=== PATIENT | male | born 1960 | race Caucasian/White ===

== ENCOUNTER 2016-07-14 15:27 | Observation (INO) | payer OTHER ==
--- NOTE | 2016-07-14 16:26 | ED ---
Extremity Problem HPI - General Chief complaint: Extremity Problem,Nontraumatic Stated complaint: Foot Pain Time Seen by Provider: 07/14/16 16:02 Source: patient Mode of arrival: wheelchair Limitations: no limitations - History of Present Illness Initial comments: 56-year-old male presents the ER with bilateral foot and ankle pain. He states that back in March his right ankle and foot started bothering him and at that time he saw a foot and ankle specialist in progression. He states that he was on some type of medication that is unknown but it did help improve the symptoms. It then flared 2 more times than he was given a joint injection that he thinks may have been steroids. He also states that he thinks he was on some oral steroids at that time as well which was about 3 weeks ago. He states that it did improve slightly but still having moderate pain in the right foot and ankle. He states that within the last week the pain swelling and issues have now started in the left foot and ankle. He states that he is unable to walk on his feet due to pain. He also states that he's been having some urinary issues including dark color in order to the urine. He also states that his anxiety has increased and is having some shortness of breath. He denies any nausea, vomiting, diarrhea, headache, blurry vision, abdominal pain, loss of sensation in the extremities, upper respiratory symptoms. He's been taking Aleve try and help with the pain however this is not helping much. - Related Data Home Medications Medication Instructions Recorded Confirmed Sleep Aid Otc(Unknown) 1 tab PO HS 07/14/16 07/14/16 Allergies Allergy/AdvReac Type Severity Reaction Status Date / Time Latex, Natural Rubber Allergy Rash/Hives Verified 07/14/16 16:08 Review of Systems ROS Statement: Those systems with pertinent positive or pertinent negative responses have been documented in the HPI. ROS Other: All systems not noted in ROS Statement are negative. Past Medical History Past Medical History: No Reported History Additional Past Medical History / Comment(s): hx. kidney stones History of Any Multi-Drug Resistant Organisms: None Reported Past Surgical History: Bowel Resection, Orthopedic Surgery Additional Past Surgical History / Comment(s): tracheotomy as a child, ORIF left leg Past Anesthesia/Blood Transfusion Reactions: No Reported Reaction Past Psychological History: No Psychological Hx Reported Smoking Status: Former smoker Past Alcohol Use History: Daily Additional Past Alcohol Use History / Comment(s): 3-4 daily Past Drug Use History: None Reported General Exam Limitations: no limitations General appearance: alert, in distress Head exam: Present: atraumatic, normocephalic Eye exam: Present: normal appearance, PERRL, EOMI Pupils: Present: normal accommodation Neck exam: Present: normal inspection Respiratory exam: Present: normal lung sounds bilaterally Cardiovascular Exam: Present: regular rate, normal rhythm Extremities exam: Present: other (Bilateral lower extremities: Non pitting chente from the foot to knee, mild erythema. Diffuse xerosis. Decreased range of motion of flexion and extension of bilateral ankle secondary to edema. Dorsalis pedis pulse intact on the left however unable to palpate on the right due to swelling. Tibialis anterior on appreciable bilaterally due to edema. Capillary refill less than 2 seconds bilaterally. Tender to touch bilateral foot ankle and lower leg.) Neurological exam: Present: alert, oriented X3, CN II-XII intact Psychiatric exam: Present: normal affect, normal mood Skin exam: Present: other (Bilateral lower legs: Scaling and xerosis bilateral anterior shins and plantar surfaces.) Course Vital Signs 07/14/16 15:57 Temperature 102.4 F H Pulse Rate 96 Respiratory 18 Rate Blood Pressure 143/95 O2 Sat by Pulse 97 Oximetry Medical Decision Making - Medical Decision Making 56-year-old male presented to the ER complaining of bilateral foot and ankle pain that has been worsening. His right foot began in March and is also began a week ago. He states that he has been evaluated by [facility] and has had previous steroid injection and oral steroid treatment to help with the right foot. The left foot has not had any treatment for this time. States that he is unable to walk due to pain. He states that he does have a family history of rheumatoid arthritis and may have been diagnosed with gout in the past however he is a poor historian on medication names treatments and previous diagnoses. Patient was evaluated and basher however it does seem that he needs a more full workup of due to being febrile at 102.4. He denied any other constitutional symptoms upon initial evaluation however he did not the nurse no that he was having dark colored and follow order urine. Labs and urinalysis were ordered. Based on symptomology and having a fever and was discussed with Dr. Hernandez in the probable best mode of action will be admission for further evaluation and workup. Due to increased anxiety and shortness of breath an EKG was ordered to evaluate cardiac causes shortness of breath. EKG did show some PVCs however no evidence of any acute ischemia or blocks. Will recommend IV antibiotics to treat for unknown source of infection however this could possibly be a septic joint. Patient was also given an oral [place] in the ER to help control his pain symptoms. - Lab Data Result diagrams: 07/14/16 16:50 07/14/16 16:50 Lab Results 07/14/16 07/14/16 07/14/16 Range/Units 16:50 16:50 16:50 WBC 9.3 (3.8-10.6) k/uL RBC 5.80 (4.30-5.90) m/uL Hgb 16.5 (13.0-17.5) gm/dL Hct 51.0 (39.0-53.0) % MCV 88.0 (80.0-100.0) fL MCH 28.5 (25.0-35.0) pg MCHC 32.4 (31.0-37.0) g/dL RDW 13.1 (11.5-15.5) % Plt Count 132 L (150-450) k/uL Neutrophils % 74 % Lymphocytes % 13 % Monocytes % 9 % Eosinophils % 2 % Basophils % 2 % Neutrophils # 6.8 (1.3-7.7) k/uL Lymphocytes # 1.2 (1.0-4.8) k/uL Monocytes # 0.8 (0-1.0) k/uL Eosinophils # 0.2 (0-0.7) k/uL Basophils # 0.2 (0-0.2) k/uL ESR 54 H (0-15) mm/hr Sodium 142 (137-145) mmol/L Potassium 4.5 (3.5-5.1) mmol/L Chloride 101 (98-107) mmol/L Carbon Dioxide 25 (22-30) mmol/L Anion Gap 16 mmol/L BUN 13 (9-20) mg/dL Creatinine 0.70 (0.66-1.25) mg/dL Est GFR (MDRD) Af Amer >60 (>60 ml/min/1.73 sqM) Est GFR (MDRD) Non-Af >60 (>60 ml/min/1.73 sqM) Glucose 140 H (74-99) mg/dL Plasma Lactic Acid Zachery 1.6 (0.7-2.0) mmol/L Uric Acid 6.5 (3.5-8.5) mg/dL Calcium 9.9 (8.4-10.2) mg/dL Total Bilirubin 2.0 H (0.2-1.3) mg/dL AST 24 (17-59) U/L ALT 41 (21-72) U/L Alkaline Phosphatase 66 (38-126) U/L Total Protein 7.2 (6.3-8.2) g/dL Albumin 4.3 (3.5-5.0) g/dL Urine Color Urine Appearance (Clear) Urine pH (5.0-8.0) Ur Specific [place] (1.001-1.035) Urine Protein (Negative) Urine Glucose (UA) (Negative) Urine Ketones (Negative) Urine Blood (Negative) Urine Nitrate (Negative) Urine Bilirubin (Negative) Urine Urobilinogen (<2.0) mg/dL Ur Leukocyte Esterase (Negative) Urine RBC (0-5) /hpf Urine WBC (0-5) /hpf Ur Squamous Epith Cells (0-4) /hpf Amorphous Sediment (None) /hpf Urine Mucus (None) /hpf 07/14/16 Range/Units 18:41 WBC (3.8-10.6) k/uL RBC (4.30-5.90) m/uL Hgb (13.0-17.5) gm/dL Hct (39.0-53.0) % MCV (80.0-100.0) fL MCH (25.0-35.0) pg MCHC (31.0-37.0) g/dL RDW (11.5-15.5) % Plt Count (150-450) k/uL Neutrophils % % Lymphocytes % % Monocytes % % Eosinophils % % Basophils % % Neutrophils # (1.3-7.7) k/uL Lymphocytes # (1.0-4.8) k/uL Monocytes # (0-1.0) k/uL Eosinophils # (0-0.7) k/uL Basophils # (0-0.2) k/uL ESR (0-15) mm/hr Sodium (137-145) mmol/L Potassium (3.5-5.1) mmol/L Chloride (98-107) mmol/L Carbon Dioxide (22-30) mmol/L Anion Gap mmol/L BUN (9-20) mg/dL Creatinine (0.66-1.25) mg/dL Est GFR (MDRD) Af Amer (>60 ml/min/1.73 sqM) Est GFR (MDRD) Non-Af (>60 ml/min/1.73 sqM) Glucose (74-99) mg/dL Plasma Lactic Acid Zachery (0.7-2.0) mmol/L Uric Acid (3.5-8.5) mg/dL Calcium (8.4-10.2) mg/dL Total Bilirubin (0.2-1.3) mg/dL AST (17-59) U/L ALT (21-72) U/L Alkaline Phosphatase (38-126) U/L Total Protein (6.3-8.2) g/dL Albumin (3.5-5.0) g/dL Urine Color Yellow Urine Appearance Cloudy (Clear) Urine pH 5.5 (5.0-8.0) Ur Specific [place] 1.025 (1.001-1.035) Urine Protein 1+ H (Negative) Urine Glucose (UA) Negative (Negative) Urine Ketones Negative (Negative) Urine Blood Negative (Negative) Urine Nitrate Negative (Negative) Urine Bilirubin Negative (Negative) Urine Urobilinogen 2.0 (<2.0) mg/dL Ur Leukocyte Esterase Negative (Negative) Urine RBC 2 (0-5) /hpf Urine WBC 7 H (0-5) /hpf Ur Squamous Epith Cells 1 (0-4) /hpf Amorphous Sediment Occasional H (None) /hpf Urine Mucus Many H (None) /hpf - EKG Data -: EKG Interpreted by In EKG shows normal: sinus rhythm Rate: normal 07/14/16 18:54 PVCs noted Disposition Clinical Impression: Fever, Leg edema, Leg pain, Bad odor of urine, Abnormal urine color, Elevated bilirubin Disposition: ADMITTED IP TO THIS [facility] Condition: Stable Referrals: Ary Sandhu MD [Primary Care Provider] - 1-2 days Decision Date: 07/14/16
[2016-07-14] MEDS ORDERED: HYDROcodone/APAP 5-325MG 1 EACH TAB PO STA (16:44)
[2016-07-14 17:02] LABS: Basophils # (A) 0.2 k/uL (0-0.2); Basophils % (A) 2 %; CH 29.3; CHCM 33.5; Eosinophils # (A) 0.2 k/uL (0-0.7); Eosinophils % (A) 2 %; HGB 16.5 gm/dL (13.0-17.5); Luc # (Auto) 0.15; Luc % (Auto) 2; Lymphocytes # (A) 1.2 k/uL (1.0-4.8); Lymphocytes % (A) 13 %; MCH 28.5 pg (25.0-35.0); MCHC 32.4 g/dL (31.0-37.0); Mean Platelet Volume 8.4; Monocytes # (A) 0.8 k/uL (0-1.0); Monocytes % (A) 9 %; Neutrophils # (A) 6.8 k/uL (1.3-7.7); Neutrophils % (A) 74 %; RDW 13.1 % (11.5-15.5); WBC 9.3 k/uL (3.8-10.6); WBC (Perox) 9.26
[2016-07-14 17:12] LABS: ALT 41 U/L (21-72); AST 24 U/L (17-59); Alkaline Phosphatase 66 U/L (38-126); Anion Gap 16 mmol/L; Blood Urea Nitrogen 13 mg/dL (9-20); Calcium 9.9 mg/dL (8.4-10.2); Carbon Dioxide 25 mmol/L (22-30); Chloride 101 mmol/L (98-107); Glucose 140 mg/dL (74-99); Non-African American GFR(MDRD) >60 (>60 ml/min/1.73 sqM); Potassium 4.5 mmol/L (3.5-5.1); Sodium 142 mmol/L (137-145); Total Protein 7.2 g/dL (6.3-8.2); Uric Acid 6.5 mg/dL (3.5-8.5)
[2016-07-14 18:02] LABS: Erythrocyte Sedimentation Rate 54 mm/hr (0-15)
[2016-07-14 18:58] LABS: Amorphous Sediment,Urine Occasional /hpf; Appearance,Urine Cloudy (Clear); Bilirubin,Urine Negative (Negative); Glucose,Urine (UA) Negative (Negative); Ketones,Urine Negative (Negative); Leukocyte Esterase,Urine Negative (Negative); Mucus,Urine Many /hpf; Nitrite,Urine Negative (Negative); PH, Urine 5.5 (5.0-8.0); Particle Count 19757; Protein,Urine 1+ (Negative); RBC,Urine 2 /hpf (0-5); Specific Gravity,Urine 1.025 (1.001-1.035); Squamous Epithelial Cell,Urine 1 /hpf (0-4); UA Billing (MACRO vs. MICRO) MICRO; WBC,Urine 7 /hpf (0-5)
[2016-07-14] MEDS ORDERED: NALOXONE 0.4 MG/ML 1 ML VIAL IV PRN (19:07)
[2016-07-14] MEDS ORDERED: HYDROcodone/APAP 5-325MG 1 EACH TAB PO PRN (19:07)
[2016-07-14] MEDS: SODIUM CHLORIDE 0.9% 1,000 ML IV SCH (19:25)
[2016-07-14 20:31] VITALS: BMI 36.2
[2016-07-14 20:31] LABS: Rheumatoid Factor, Qnt <9 IU/mL (<12)
[2016-07-14] MEDS: IBUPROFEN 400 MG TAB PO PRN (20:42)
[2016-07-14 22:14] LABS: C Reactive Protein 197.1 mg/L (<10.0)
[2016-07-15] MEDS: MELATONIN 5 MG TABLET PO SCH ×2 (03:38→21:11)
[2016-07-15] MEDS: IBUPROFEN 400 MG TAB PO PRN ×3 (04:47→23:37)
[2016-07-15 06:37] LABS: Glucose,Whole Blood 107 mg/dL (75-99)
[2016-07-15 07:02] LABS: Basophils % (A) 1 %; CHCM 32.5; Eosinophils # (A) 0.1 k/uL (0-0.7); Eosinophils % (A) 2 %; HCT 46.7 % (39.0-53.0); HDW 2.57; HGB 15.1 gm/dL (13.0-17.5); Luc # (Auto) 0.15; Luc % (Auto) 2; Lymphocytes # (A) 0.9 k/uL (1.0-4.8); Lymphocytes % (A) 14 %; MCHC 32.3 g/dL (31.0-37.0); MCV 89.7 fL (80.0-100.0); Mean Platelet Volume 8.2; Monocytes # (A) 0.7 k/uL (0-1.0); Monocytes % (A) 10 %; Neutrophils # (A) 4.5 k/uL (1.3-7.7); Neutrophils % (A) 70 %; RDW 12.8 % (11.5-15.5); WBC 6.3 k/uL (3.8-10.6); WBC (Perox) 6.03
[2016-07-15 07:17] LABS: ALT 45 U/L (21-72); AST 24 U/L (17-59); Alkaline Phosphatase 63 U/L (38-126); Anion Gap 9 mmol/L; Blood Urea Nitrogen 16 mg/dL (9-20); Calcium 9.4 mg/dL (8.4-10.2); Carbon Dioxide 29 mmol/L (22-30); Chloride 103 mmol/L (98-107); Glucose 115 mg/dL (74-99); Non-African American GFR(MDRD) >60 (>60 ml/min/1.73 sqM); Potassium 4.6 mmol/L (3.5-5.1); Sodium 141 mmol/L (137-145); Total Bilirubin 1.5 mg/dL (0.2-1.3); Total Protein 6.5 g/dL (6.3-8.2)
[2016-07-15 12:12] LABS: Glucose,Whole Blood 94 mg/dL (75-99)
[2016-07-15] MEDS ORDERED: IV VANCOMYCIN PER PHARMACY 1 EACH MISC MISCELLANE PRN (13:13)
--- NOTE | 2016-07-15 13:56 | XR ---
EXAMINATION TYPE: XR foot limited bilateral DATE OF EXAM: 07/15/2016 1:52 PM COMPARISON: NONE HISTORY: Bilateral foot pain and swelling TECHNIQUE: 2 views bilateral feet FINDINGS: Right foot: There is deformity of the distal fourth digit is present. Plantar calcaneal heel spur is present. Left foot: Deformity of the distal fourth and fifth digits are present. Plantar calcaneal heel spur is present. IMPRESSION: 1. No acute osseous abnormality. 2. Bilateral plantar calcaneal heel spurs.
[2016-07-15] MEDS: VANCOMYCIN 1,750 MG in SODIUM CHLORIDE 0.9% 250 ML IVPB SCH ×2 (14:23→21:11)
[2016-07-15] MEDS: PREGABALIN 100 MG CAP PO SCH ×2 (14:24→21:11)
[2016-07-15] MEDS: HEPARIN SODIUM,PORCINE 5,000 UNIT/ML 1 ML VIAL SQ SCH ×2 (16:37→23:55)
[2016-07-15 17:19] LABS: Glucose,Whole Blood 105 mg/dL (75-99)
--- NOTE | 2016-07-15 18:40 | HP ---
DATE OF ADMISSION: Patient is a 56-year-old with an extensive history of bilateral ankle pain. He was extensively evaluated in the foot clinic and was told he had what appeared to be osteoarthritis. He came with bilateral foot pain, ankle pain and ambulation problems. When patient came into ER, patient was found to have a fever. Source of fever is unknown at this point of time. Patient denied any flu-like symptoms. Patient denied any chest pain, nausea, vomiting. Patient denied ( ) dysuria, cough. Patient's ( ) chest x-ray all ( ) patient is afebrile since yesterday, although receiving Mize and ibuprofen for pain. I discontinued Mize Blood cultures were obtained in ER. I will go ahead and watch him one more night for any febrile episodes off Mize. Regarding the bilateral foot pain, patient appears to have osteoarthritis. Patient denied any calf pain. I am getting x-rays of the bilateral ankles. Orthopedic Surgery was consulted ( ). Patient has non-impressive mild redness with mild local rise of temperature in the left leg, both the ankle areas, extending about 10 cm circumferentially, because of which, although my suspicion is low for cellulitis, as I did not find any source of infection and patient was febrile yesterday, I went ahead and started him on antibiotics in the form of vancomycin. Patient's Rocephin was discontinued. REVIEW OF SYSTEMS: CONSTITUTIONAL: No fever, no malaise, no fatigue. HEENT: No recent visual problems or hearing problems. Denied any sore throat. CARDIOVASCULAR: No chest pain, orthopnea, PND, no palpitations, no syncope. PULMONARY: No shortness of breath, no cough, no hemoptysis. GASTROINTESTINAL: No diarrhea, no nausea, no vomiting, no abdominal pain. Normoactive bowel sounds. NEUROLOGICAL: No headaches, no weakness, no numbness. HEMATOLOGICAL: Denies any bleeding or petechiae. GENITOURINARY: Denies any burning micturition, frequency, or urgency. MUSCULOSKELETAL/RHEUMATOLOGICAL: As described in HPI. ENDOCRINE: Denies any polyuria or polydipsia. GENERAL: As described in HPI. The rest of the 14 point review of systems is negative. HOME MEDICATIONS: Sleep aid [id number]. ALLERGIES: NO KNOWN DRUG ALLERGIES. PAST MEDICAL HISTORY: 1. Morbid obesity. 2. Alcoholism. 3. Severe osteoarthritis. 4. Bowel resection. 5. Orthopedic surgery in the past. SOCIAL HISTORY: Patient used to smoke in the past; quit about 14 years ago. Drinks about 3 to 4 beers a day. Denied any drug abuse. FAMILY HISTORY: Denied any family history of hypertension or diabetes mellitus in the family. PHYSICAL EXAMINATION: VITAL SIGNS: Temperature 96.7. [id number] T-max is 102.4. Pulse of 96, respiratory rate of 18. Blood pressure is 143/95. Saturating at 97% on room air. GENERAL: The patient is alert and oriented x3, not in any acute distress. Well developed, well nourished. HEENT: Pupils are round and equally reacting to light. EOMI. No scleral icterus. No conjunctival pallor. Normocephalic, atraumatic. No pharyngeal erythema. No thyromegaly. CARDIOVASCULAR: S1 and S2 present. No murmurs, rubs, or gallops. PULMONARY: Chest is clear to auscultation, no wheezing or crackles. ABDOMEN: Soft, nontender, nondistended, normoactive bowel sounds. No palpable organomegaly. MUSCULOSKELETAL: As mentioned above. EXTREMITIES: No cyanosis, clubbing, or pedal edema. Hip pain on and off. NEUROLOGICAL: Gross neurological examination did not reveal any focal deficits. SKIN: Rash as mentioned above. LABORATORY DATA: CBC, CMP essentially within normal limits. Liver function tests are within normal limits. Uric acid level is not diagnostic of anything, but it is within normal limits. UA within normal limits. Chest x-ray as mentioned above. ASSESSMENT AND PLAN: 1. Bilateral ankle pain; unsure of the exact etiology. Patient's ankle does not appear to be septic. Patient may have severe osteoarthritis. I will obtain an x-ray. Will also get orthopedic consultation because of his ambulation issues. Will also obtain PT and OT consultation. 2. Fever; unsure of the exact etiology of fever. I cannot completely rule out cellulitis, as mentioned above, because of which patient was started on vancomycin. 3. Alcoholic abuse. Counseling was provided. 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 Counseling was provided that and patient was asked to take vitamin supplements at home, particularly B vitamin. Patient's MCV is essentially within normal limits. Extensive counseling regarding alcohol use was provided. 4. Morbid obesity, probably responsible for early osteoarthritis in him.
[2016-07-15] MEDS: SODIUM CHLORIDE 0.9% 1,000 ML IV SCH (21:13)
[2016-07-16] MEDS: IBUPROFEN 400 MG TAB PO PRN (06:34)
[2016-07-16 08:12] VITALS: RESP 18
[2016-07-16] MEDS: VANCOMYCIN 1,750 MG in SODIUM CHLORIDE 0.9% 250 ML IVPB SCH (08:54)
[2016-07-16] MEDS: PREGABALIN 100 MG CAP PO SCH (09:05)
[2016-07-16] MEDS: HEPARIN SODIUM,PORCINE 5,000 UNIT/ML 1 ML VIAL SQ SCH (09:05)
[2016-07-16 12:44] VITALS: BP 157/85; PULSE 93; TEMP 98
--- NOTE | 2016-07-16 23:02 | DS ---
DATE OF ADMISSION: 07/14/2016 DATE OF DISCHARGE: 07/16/2016 Patient came in with bilateral leg swelling, found to have bilateral ( ) calcaneal spurs and no other osseous abnormality was appreciated. Patient is morbidly obese, making him to have swelling in the bilateral lower limbs. Patient may have chronic venous insufficiency as well. Patient has bit of redness. Although low possibility, I cannot rule out cellulitis in the left above-ankle area circumferentially, because of which I am discharging him on empiric antibiotics in the form of Bactrim for about 5 more days, completing a total 7-day course of therapy. Patient here had received vancomycin and patient was febrile when he came in. Patient is not found to have any other sources of infection. Patient was seen and examined on the day of discharge. PHYSICAL EXAMINATION: VITAL SIGNS: Stable. GENERAL: The patient is alert and oriented x3, not in any acute distress. Well developed, well nourished. HEENT: Pupils are round and equally reacting to light. EOMI. No scleral icterus. No conjunctival pallor. Normocephalic, atraumatic. No pharyngeal erythema. No thyromegaly. CARDIOVASCULAR: S1 and S2 present. No murmurs, rubs, or gallops. PULMONARY: Chest is clear to auscultation, no wheezing or crackles. ABDOMEN: Soft, nontender, nondistended, normoactive bowel sounds. No palpable organomegaly. MUSCULOSKELETAL: No joint swelling or deformity. EXTREMITIES: No cyanosis, clubbing, or pedal edema. NEUROLOGICAL: Gross neurological examination did not reveal any focal deficits. DERMATOLOGIC: Improved redness compared to yesterday. ASSESSMENT AND PLAN: 1. Bilateral ankle pain and swelling. Bilateral leg pain is probably related to calcaneal spurs and swelling is probably due to chronic venous insufficiency. 2. Fever, etiology is unknown. Patient was treated for cellulitis. 3. Alcohol abuse. Counseling was provided. 4. Morbid obesity. Counseling was provided. 5. Patient is being discharged on Bactrim. Patient will continue his naproxen for pain and swelling on p.r.n. basis.
[2016-07-17] MEDS ORDERED: VANCOMYCIN TROUGH DUE 1 EACH MISC MISCELLANE ONE (08:00)
== END 2016-07-16 15:00 | disposition home or self-care (01) ==
LOC: EC 15:27 → 3OBS 19:17
PROVIDERS: ADMIT Hospitalist; ATTEND Hospitalist
DX: M25.572 Pain in left ankle and joints of left foot (principal); M25.571 Pain in right ankle and joints of right foot; M25.472 Effusion, left ankle; M25.471 Effusion, right ankle; M77.32 Calcaneal spur, left foot; M77.31 Calcaneal spur, right foot; L03.116 Cellulitis of left lower limb; R50.9 Fever, unspecified; F10.10 Alcohol abuse, uncomplicated; E66.01 Morbid (severe) obesity due to excess calories; Z68.36 Body mass index [BMI] 36.0-36.9, adult; R82.90 Unspecified abnormal findings in urine; M19.90 Unspecified osteoarthritis, unspecified site; G62.9 Polyneuropathy, unspecified; Z91.040 Latex allergy status; Z87.891 Personal history of nicotine dependence
CPT/HCPCS: 36415; 93005; 97161; 80053 ×2; 85652; 83605; 84550; 85025 ×2; 86140; 86431; 81001; 87040; 73620; 99285; G0378 ×3; J3370 ×2; J1644 ×2; J0696; 96365; 96366; 96367; 96372

== ENCOUNTER 2017-03-29 06:36 | Inpatient (IN) | payer OTHER ==
[2017-03-29] MEDS ORDERED: PIPERACILLIN-TAZOBACTAM 3.375 GM in DEXTROSE/WATER 1 50ML.BAG IVPB STA (07:15)
[2017-03-29] MEDS ORDERED: IBUPROFEN 600 MG TAB PO STA (07:15)
[2017-03-29] MEDS ORDERED: ACETAMINOPHEN TAB 500 MG TAB PO STA (07:15)
--- NOTE | 2017-03-29 07:20 | ED ---
General Adult HPI - General Chief complaint: Extremity Problem,Nontraumatic Stated complaint: Hand Swelling Time Seen by Provider: 03/29/17 07:00 Source: patient, family, RN notes reviewed Mode of arrival: ambulatory Limitations: no limitations - History of Present Illness Initial comments: This is a 56-year-old male who presents emergency Department complaining of a possible sliver in the palm of his right hand patient states been a couple days and now his hand is swollen and red and is redness going up his arm. Patient also has a low-grade fever. Patient states he does have psoriasis as well. Patient does not have any cough or really breathing shortness of breath per patient denies any chest pain. Patient denies headache patient denies numbness weakness. Patient denies any nausea vomiting diarrhea. - Related Data Home Medications Medication Instructions Recorded Confirmed Allopurinol [Zyloprim] 300 mg PO DAILY 03/29/17 03/29/17 Colchicine [Colcrys] 0.6 mg PO DAILY 03/29/17 03/29/17 Meloxicam [Mobic] 15 mg PO DAILY 03/29/17 03/29/17 Allergies Allergy/AdvReac Type Severity Reaction Status Date / Time Latex, Natural Rubber AdvReac Rash/Hives Verified 03/29/17 06:42 Review of Systems ROS Statement: Those systems with pertinent positive or pertinent negative responses have been documented in the HPI. ROS Other: All systems not noted in ROS Statement are negative. Past Medical History Past Medical History: No Reported History Additional Past Medical History / Comment(s): hx. kidney stones, psoriasis, gout History of Any Multi-Drug Resistant Organisms: None Reported Past Surgical History: Bowel Resection, Orthopedic Surgery Additional Past Surgical History / Comment(s): tracheotomy as a child, ORIF left leg Past Anesthesia/Blood Transfusion Reactions: No Reported Reaction Past Psychological History: No Psychological Hx Reported Smoking Status: Former smoker Past Alcohol Use History: Daily Past Drug Use History: None Reported - Past Family History Father Additional Family Medical History / Comment(s): parkinsons, skin CA Mother Family Medical History: Rheumatoid Arthritis (RA) General Exam - General Exam Comments Initial Comments: GENERAL: Patient is well-developed and well-nourished. Patient is nontoxic and well- hydrated and is in no distress . ENT: Neck is soft and supple. No significant lymphadenopathy is noted. Oropharynx is clear. Moist mucous membranes. Neck has full range of motion without eliciting any pain. There is no thyroid enlargement and no masses were felt. EYES: The sclera were anicteric and conjunctiva were pink and moist. Extraocular movements were intact and pupils were equal round and reactive to light. Eyelids were unremarkable. PULMONARY: Unlabored respirations. Good breath sounds bilaterally. No audible rales rhonchi or wheezing was noted. CARDIOVASCULAR: There is a regular rate and rhythm without any murmurs gallops or rubs. ABDOMEN: Soft and nontender with normal bowel sounds. No palpable organomegaly was noted. There is no palpable pulsatile mass. SKIN: Right hand is swollen there is an area that is raised were he states the sliver enter I see no signs of the sliver. Patient's hand is red and tender and there is redness going up his forearm to the distal aspect of his arm NEUROLOGIC: Patient is alert and oriented x3. Cranial nerves II through XII are grossly intact. Motor and sensory are also intact. Normal speech, volume and content. Symmetrical smile. MUSCULOSKELETAL Patient's examination full range of motion. For specific description of his right hand and arm look at the description under skin LYMPHATICS: No significant lymphadenopathy is noted PSYCHIATRIC: Normal psychiatric evaluation. Limitations: no limitations Course Vital Signs 03/29/17 03/29/17 03/29/17 06:39 07:55 08:54 Temperature 100 F H 98.6 F Pulse Rate 78 78 74 Respiratory 18 17 14 Rate Blood Pressure 164/83 140/79 136/63 O2 Sat by Pulse 98 95 95 Oximetry Medical Decision Making - Medical Decision Making EKG shows normal sinus rhythm at 75 bpm AR interval is on a 42 QRS is 80 QT interval 382 QTC is 426. Patient's EKG shows no ST segment elevation or depression or T wave abnormalities are noted. - Lab Data Result diagrams: 03/29/17 07:40 03/29/17 07:40 Lab Results 03/29/17 03/29/17 03/29/17 Range/Units 07:40 07:40 07:40 WBC 9.9 (3.8-10.6) k/uL RBC 5.60 (4.30-5.90) m/uL Hgb 17.4 (13.0-17.5) gm/dL Hct 52.9 (39.0-53.0) % MCV 94.5 (80.0-100.0) fL MCH 31.0 (25.0-35.0) pg MCHC 32.8 (31.0-37.0) g/dL RDW 15.0 (11.5-15.5) % Plt Count 128 L (150-450) k/uL Neutrophils % 77 % Lymphocytes % 13 % Monocytes % 7 % Eosinophils % 2 % Basophils % 1 % Neutrophils # 7.6 (1.3-7.7) k/uL Lymphocytes # 1.3 (1.0-4.8) k/uL Monocytes # 0.7 (0-1.0) k/uL Eosinophils # 0.2 (0-0.7) k/uL Basophils # 0.1 (0-0.2) k/uL PT (9.0-12.0) sec INR (<1.2) APTT (22.0-30.0) sec Sodium 138 (137-145) mmol/L Potassium 3.9 (3.5-5.1) mmol/L Chloride 106 (98-107) mmol/L Carbon Dioxide 21 L (22-30) mmol/L Anion Gap 11 mmol/L BUN 12 (9-20) mg/dL Creatinine 0.67 (0.66-1.25) mg/dL Est GFR (MDRD) Af Amer >60 (>60 ml/min/1.73 sqM) Est GFR (MDRD) Non-Af >60 (>60 ml/min/1.73 sqM) Glucose 109 H (74-99) mg/dL Plasma Lactic Acid Zachery 1.6 (0.7-2.0) mmol/L Calcium 9.0 (8.4-10.2) mg/dL Total Bilirubin 1.6 H (0.2-1.3) mg/dL AST 19 (17-59) U/L ALT 33 (21-72) U/L Alkaline Phosphatase 61 (38-126) U/L Total Protein 6.6 (6.3-8.2) g/dL Albumin 4.2 (3.5-5.0) g/dL 03/29/17 Range/Units 07:40 WBC (3.8-10.6) k/uL RBC (4.30-5.90) m/uL Hgb (13.0-17.5) gm/dL Hct (39.0-53.0) % MCV (80.0-100.0) fL MCH (25.0-35.0) pg MCHC (31.0-37.0) g/dL RDW (11.5-15.5) % Plt Count (150-450) k/uL Neutrophils % % Lymphocytes % % Monocytes % % Eosinophils % % Basophils % % Neutrophils # (1.3-7.7) k/uL Lymphocytes # (1.0-4.8) k/uL Monocytes # (0-1.0) k/uL Eosinophils # (0-0.7) k/uL Basophils # (0-0.2) k/uL PT 10.4 (9.0-12.0) sec INR 1.0 (<1.2) APTT 22.5 (22.0-30.0) sec Sodium (137-145) mmol/L Potassium (3.5-5.1) mmol/L Chloride (98-107) mmol/L Carbon Dioxide (22-30) mmol/L Anion Gap mmol/L BUN (9-20) mg/dL Creatinine (0.66-1.25) mg/dL Est GFR (MDRD) Af Amer (>60 ml/min/1.73 sqM) Est GFR (MDRD) Non-Af (>60 ml/min/1.73 sqM) Glucose (74-99) mg/dL Plasma Lactic Acid Zachery (0.7-2.0) mmol/L Calcium (8.4-10.2) mg/dL Total Bilirubin (0.2-1.3) mg/dL AST (17-59) U/L ALT (21-72) U/L Alkaline Phosphatase (38-126) U/L Total Protein (6.3-8.2) g/dL Albumin (3.5-5.0) g/dL Disposition Clinical Impression: Cellulitis of right hand, Foreign body hand-infection Disposition: ADMITTED IP TO THIS HOSP Referrals: Ary Sandhu MD [Primary Care Provider] - 1-2 days Time of Disposition: 10:00
[2017-03-29] MEDS: SODIUM CHLORIDE 0.9% 500 ML IV SCH ×2 (07:44→08:15)
[2017-03-29 08:18] LABS: Basophils # (A) 0.1 k/uL (0-0.2); Basophils % (A) 1 %; CH 31.1; CHCM 33.1; Eosinophils # (A) 0.2 k/uL (0-0.7); Eosinophils % (A) 2 %; HCT 52.9 % (39.0-53.0); HDW 2.37; HGB 17.4 gm/dL (13.0-17.5); Luc # (Auto) 0.15; Luc % (Auto) 2; Lymphocytes # (A) 1.3 k/uL (1.0-4.8); Lymphocytes % (A) 13 %; MCHC 32.8 g/dL (31.0-37.0); MCV 94.5 fL (80.0-100.0); Mean Platelet Volume 8.8; Monocytes # (A) 0.7 k/uL (0-1.0); Monocytes % (A) 7 %; Neutrophils # (A) 7.6 k/uL (1.3-7.7); Neutrophils % (A) 77 %; WBC 9.9 k/uL (3.8-10.6); WBC (Perox) 10.15
--- NOTE | 2017-03-29 08:25 | XR ---
EXAMINATION TYPE: XR hand complete RT , 4 VIEWS DATE OF EXAM ORDERED: 03/29/2017 HISTORY: Pain. COMPARISON: None. FINDINGS: Unfortunately, the fingers are flexed in all projections. This makes assessing joint spaces difficult. No fracture, dislocation or radiopaque foreign body is seen.. IMPRESSION: NO ACUTE OSSEOUS LESION AND NO RADIOPAQUE FOREIGN BODY.
[2017-03-29 08:26] LABS: Partial Thromboplastin Time 22.5 sec (22.0-30.0); Prothrombin Time 10.4 sec (9.0-12.0)
[2017-03-29 08:41] LABS: ALT 33 U/L (21-72); AST 19 U/L (17-59); Alkaline Phosphatase 61 U/L (38-126); Anion Gap 11 mmol/L; Blood Urea Nitrogen 12 mg/dL (9-20); Carbon Dioxide 21 mmol/L (22-30); Chloride 106 mmol/L (98-107); Glucose 109 mg/dL (74-99); Non-African American GFR(MDRD) >60 (>60 ml/min/1.73 sqM); Potassium 3.9 mmol/L (3.5-5.1); Sodium 138 mmol/L (137-145); Total Bilirubin 1.6 mg/dL (0.2-1.3); Total Protein 6.6 g/dL (6.3-8.2)
[2017-03-29] MEDS ORDERED: SODIUM CHLORIDE 0.9% 1,000 ML IV ONE (10:01)
[2017-03-29 10:47] VITALS: BMI 38.4
[2017-03-29] MEDS ORDERED: VANCOMYCIN IV PER PHARMACY 1 EACH MISC MISCELLANE PRN (12:37)
[2017-03-29] MEDS ORDERED: VANCOMYCIN 2,000 MG in SODIUM CHLORIDE 0.9% 500 ML IVPB ONE (13:30)
--- NOTE | 2017-03-29 13:51 | P.HPIM ---
History of Present Illness 56-year-old gentleman came in with complaints of swelling of the right hand patient has couple skin breakdowns in the palmar aspect of the hand with the redness significant swelling tenderness and patient is admitted for cellulitis there is no significant abscess on the hand but patient is concerned about retained hardware x-ray did not show any hardware on the palmar aspect of the hand patient did have a low-grade fever. Patient denied any numbness weakness denied any nausea vomiting diarrhea. I'm counseling orthopedic surgery because of the Patient's concern of retained hardware right hand palmar aspect. Review of Systems REVIEW OF SYSTEMS: CONSTITUTIONAL: No fever, no malaise, no fatigue. HEENT: No recent visual problems or hearing problems. Denied any sore throat. CARDIOVASCULAR: No chest pain, orthopnea, PND, no palpitations, no syncope. PULMONARY: No shortness of breath, no cough, no hemoptysis. GASTROINTESTINAL: No diarrhea, no nausea, no vomiting, no abdominal pain. Normoactive bowel sounds. NEUROLOGICAL: No headaches, no weakness, no numbness. HEMATOLOGICAL: Denies any bleeding or petechiae. GENITOURINARY: Denies any burning micturition, frequency, or urgency. MUSCULOSKELETAL/RHEUMATOLOGICAL: As mentioned in the HPI ENDOCRINE: Denies any polyuria or polydipsia. The rest of the 14-point review of systems is negative. Past Medical History Past Medical History: No Reported History Additional Past Medical History / Comment(s): hx. kidney stones, psoriasis, gout History of Any Multi-Drug Resistant Organisms: None Reported Past Surgical History: Bowel Resection, Orthopedic Surgery Additional Past Surgical History / Comment(s): tracheotomy as a child, ORIF left leg Past Anesthesia/Blood Transfusion Reactions: No Reported Reaction Past Psychological History: No Psychological Hx Reported Smoking Status: Former smoker Past Alcohol Use History: Daily Additional Past Alcohol Use History / Comment(s): 3-4 beers daily Past Drug Use History: None Reported - Past Family History Father Additional Family Medical History / Comment(s): parkinsons, skin CA Mother Family Medical History: Rheumatoid Arthritis (RA) Medications and Allergies Home Medications Medication Instructions Recorded Confirmed Type Allopurinol [Zyloprim] 300 mg PO DAILY 03/29/17 03/29/17 History Colchicine [Colcrys] 0.6 mg PO DAILY 03/29/17 03/29/17 History Meloxicam [Mobic] 15 mg PO DAILY 03/29/17 03/29/17 History diphenhydrAMINE HCL [Benadryl] 25 mg PO HS 03/29/17 03/29/17 History Allergies Allergy/AdvReac Type Severity Reaction Status Date / Time Latex, Natural Rubber AdvReac Rash/Hives Verified 03/29/17 10:28 Physical Exam Vitals: Vital Signs Temp Pulse Pulse Resp BP BP Pulse Ox 03/29/17 13:35 98 F 61 16 124/71 92 L 03/29/17 10:41 98 F 70 17 132/62 94 L 03/29/17 10:21 98 F 68 15 122/64 95 03/29/17 08:54 98.6 F 74 14 136/63 95 03/29/17 07:55 78 17 140/79 95 03/29/17 06:39 100 F H 78 18 164/83 98 Intake and Output 03/28/17 03/29/17 03/29/17 22:59 06:59 14:59 Other: Weight 117.934 kg 117.934 kg Patient Weight 03/30/17 06:59 Weight 117.934 kg PHYSICAL EXAMINATION: GENERAL: The patient is alert and oriented x3, not in any acute distress. Well developed, well nourished. HEENT: Pupils are round and equally reacting to light. EOMI. No scleral icterus. No conjunctival pallor. Normocephalic, atraumatic. No pharyngeal erythema. No thyromegaly. CARDIOVASCULAR: S1 and S2 present. No murmurs, rubs, or gallops. PULMONARY: Chest is clear to auscultation, no wheezing or crackles. ABDOMEN: Soft, nontender, nondistended, normoactive bowel sounds. No palpable organomegaly. MUSCULOSKELETAL: No joint swelling or deformity. EXTREMITIES: No cyanosis, clubbing, or pedal edema. In the has significant swelling of the right hand with the couple skin breakdowns unsure of the any hardware in the palmar aspect of the hand with the local is of temperature and tenderness. NEUROLOGICAL: Gross neurological examination did not reveal any focal deficits. SKIN: No rashe Results CBC & Chem 7: 03/29/17 07:40 03/29/17 07:40 Labs: Abnormal Lab Results - Last 24 Hours (Table) 03/29/17 03/29/17 Range/Units 07:40 07:40 Plt Count 128 L (150-450) k/uL Carbon Dioxide 21 L (22-30) mmol/L Glucose 109 H (74-99) mg/dL Total Bilirubin 1.6 H (0.2-1.3) mg/dL Thrombosis Risk Factor Assmnt - Choose All That Apply Any of the Below Risk Factors Present?: Yes Each Factor Represents 1 point: Age 41-60 years, Obesity (BMI >25) Other Risk Factors: No Other congenital or acquired thrombophilia - If yes, enter type in comment: No Thrombosis Risk Factor Assessment Total Risk Factor Score: 2 Thrombosis Risk Factor Assessment Level: Low Risk Assessment and Plan Plan: #1 cellulitis. of the right hand secondary to injury from from using hardware: Arthritic surgery will be consulted patient was switched to vancomycin to cover the skin organisms as the cause for his infection my suspicion is low that he has any retained hardware #2 sepsis secondary to cellulitis: Blood cultures were obtained. #3 psoriasis and gout: Patient will continue with his home medications for that. #4 morbid obesity counseling was provided. #5 nicotine abuse: Counseling was provided and counseling regarding alcohol abuse was provided as well.
[2017-03-29] MEDS ORDERED: PIPERACILLIN-TAZOBACTAM 3.375 GM in DEXTROSE/WATER 1 50ML.BAG IVPB SCH (16:00)
[2017-03-29 16:58] LABS: Appearance,Urine Clear (Clear); Bilirubin,Urine Negative (Negative); Glucose,Urine (UA) Negative (Negative); Ketones,Urine Negative (Negative); Leukocyte Esterase,Urine Negative (Negative); Nitrite,Urine Negative (Negative); PH, Urine 6.5 (5.0-8.0); Protein,Urine Negative (Negative); UA Billing (MACRO vs. MICRO) CHEM; Urobilinogen,Urine <2.0 mg/dL (<2.0)
[2017-03-29] MEDS: VANCOMYCIN 1,750 MG in SODIUM CHLORIDE 0.9% 250 ML IVPB SCH (22:16)
[2017-03-30] MEDS: HYDROcodone/APAP 5-325MG 1 EACH TAB PO PRN ×2 (00:59→22:23)
[2017-03-30] MEDS: SODIUM CHLORIDE 0.9% 1,000 ML IV SCH ×3 (03:15→21:34)
[2017-03-30] MEDS: VANCOMYCIN 1,750 MG in SODIUM CHLORIDE 0.9% 250 ML IVPB SCH ×3 (05:38→22:22)
[2017-03-30 07:42] LABS: CH 30.6; CHCM 32.2; HCT 50.6 % (39.0-53.0); HGB 16.1 gm/dL (13.0-17.5); MCH 30.5 pg (25.0-35.0); MCHC 31.9 g/dL (31.0-37.0); MCV 95.6 fL (80.0-100.0); Mean Platelet Volume 8.7; RBC 5.29 m/uL (4.30-5.90); RDW 14.3 % (11.5-15.5); WBC 7.8 k/uL (3.8-10.6)
[2017-03-30 08:09] LABS: Anion Gap 10 mmol/L; Blood Urea Nitrogen 9 mg/dL (9-20); Calcium 9.1 mg/dL (8.4-10.2); Carbon Dioxide 24 mmol/L (22-30); Chloride 107 mmol/L (98-107); Glucose 149 mg/dL (74-99); Non-African American GFR(MDRD) >60 (>60 ml/min/1.73 sqM); Potassium 4.6 mmol/L (3.5-5.1); Sodium 141 mmol/L (137-145)
--- NOTE | 2017-03-30 11:25 | P.CNOR ---
History of Present Illness - [facility] Consult date: 03/30/17 Requesting physician: Nay Hsieh Consult reason: other (Right hand pain and cellulitis) History of present illness: Patient is very pleasant 56-year-old male who is seen and examined at bedside by myself and Dr. Tim Mercer for further evaluation of his right hand. Patient was admitted yesterday after presenting with increased redness, swelling, and cellulitis of the right hand. He's been seen and examined by medicine. He is currently on vancomycin. Patient states he has been expriencing worsening pain and swelling of the right hand and is having increased difficulty using his right hand. 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 X-ray imaging showed no evidence of radiopaque foreign body in his right hand. He states his fingers feel stiff and he has difficulty making a fist. He was having pain extending up into the forearm yesterday. This has improved since starting on vancomycin. He states he does have a history of significant plaque psoriasis on his hands with a firm bump on the palmar side of his right hand. He denies any specific injury to the right hand. He is not currently experiencing nausea, vomiting, fever, chills. His states he was feeling significant chills on Friday while at home. His current temperature is 98.6F. Past Medical History Past Medical History: No Reported History Additional Past Medical History / Comment(s): hx. kidney stones, psoriasis, gout History of Any Multi-Drug Resistant Organisms: None Reported Past Surgical History: Bowel Resection, Orthopedic Surgery Additional Past Surgical History / Comment(s): tracheotomy as a child, ORIF left leg Past Anesthesia/Blood Transfusion Reactions: No Reported Reaction Past Psychological History: No Psychological Hx Reported Smoking Status: Former smoker Past Alcohol Use History: Daily Additional Past Alcohol Use History / Comment(s): 3-4 beers daily Past Drug Use History: None Reported - Past Family History Father Additional Family Medical History / Comment(s): parkinsons, skin CA Mother Family Medical History: Rheumatoid Arthritis (RA) Medications and Allergies Home Medications Medication Instructions Recorded Confirmed Type Allopurinol [Zyloprim] 300 mg PO DAILY 03/29/17 03/29/17 History Colchicine [Colcrys] 0.6 mg PO DAILY 03/29/17 03/29/17 History Meloxicam [Mobic] 15 mg PO DAILY 03/29/17 03/29/17 History diphenhydrAMINE HCL [Benadryl] 25 mg PO HS 03/29/17 03/29/17 History Allergies Allergy/AdvReac Type Severity Reaction Status Date / Time Latex, Natural Rubber AdvReac Rash/Hives Verified 03/29/17 10:28 Physical Examination Physical Exam: Patient is awake, alert, and oriented 3 Vital signs stable Good chest excursion with deep inspiration and expiration Evidence of generalized swelling over the fingers, hand, and wrist of the right upper extremity Generalized erythema most significant over the dorsal aspect of the hand extending up to the lower third of the right forearm Some pain with palpation over the palmar aspect of the right hand No pain with palpation over the right wrist or forearm Evidence of significant skin changes with scratches and some plaque psoriasis on the palmar side of the right hand No evidence of specific infection site of the right hand; no evidence of significant raised lesion; no active drainage of the hand or right upper extremity Neurovascular intact right upper extremity Difficulty with making a fist with the right hand Patient is able to wiggle all fingers and thumb of the right hand Active full range of motion of the right elbow and shoulder without significant difficulty Results Pertinent studies X-ray of the right hand: No acute osseous lesion; No evidence of radiopaque foreign body; no evidence of fracture dislocation - Labs Labs: Abnormal Lab Results - Last 24 Hours (Table) 03/30/17 03/30/17 Range/Units 07:15 07:15 Plt Count 118 L (150-450) k/uL Glucose 149 H (74-99) mg/dL Microbiology - Last 24 Hours (Table) 03/29/17 16:30 Urine Culture - Preliminary Urine,Clean Catch H & H 03/29/17 03/30/17 Range/Units 07:40 07:15 Hgb 17.4 16.1 (13.0-17.5) gm/dL Hct 52.9 50.6 (39.0-53.0) % Coagulation 03/29/17 Range/Units 07:40 INR 1.0 (<1.2) Result Diagrams: 03/30/17 07:15 03/30/17 07:15 Assessment and Plan (1) Right hand pain Status: Acute (2) Swelling of right hand Status: Acute (3) Cellulitis of right hand Status: Acute Plan: Assessment: Cellulitis the right hand and upper extremity Right hand pain and swelling Plan: 1. At this time, we will currently plan for the patient to continue with vancomycin IV antibiotic treatment for the cellulitis of the right hand and upper extremity. We will continue to follow the patient closely. We will not plan for surgical intervention today, 03/30/2017. He may resume eating a regular diet. We'll plan to make him nothing by mouth starting at midnight, 07/2016, and we will plan for further evaluation in the morning. If his symptoms do not improve and there is evidence of a localized wound/lesion of the right hand, we may plan for surgical intervention tomorrow afternoon. The most likely postsurgical intervention be incision and drainage on the palmar side of the right hand. We will continue to follow patient closely. 2. Continue pain control 3. Medicine to continue following the patient for cellulitis and his other medical diagnoses Time with Patient: Less than 30
--- NOTE | 2017-03-30 11:46 | P.PN ---
Subjective Principal diagnosis: Patient was admitted secondary to hardware injury of the right palmar aspect with cellulitis and swelling patient still has swelling cellulitis appears to have some improvement. Patient was evaluated by orthopedic surgery who will further evaluate and if needed exploration tomorrow. Patient will remain nothing by mouth after midnight today No significant improvement in his right hand swelling but cellulitis overall did improve pain did improve patient denied any cough chest pain, nausea, vomiting.. Objective - Vital Signs Vital signs: Vital Signs Temp 98.6 F 03/30/17 07:00 Pulse 77 03/30/17 07:00 Resp 18 03/30/17 07:00 BP 141/83 03/30/17 07:00 Pulse Ox 95 03/30/17 07:00 Intake & Output 03/29/17 03/30/17 03/30/17 18:59 06:59 18:59 Intake Total 400 200 Balance 400 200 Weight 117.934 kg Intake: IV 400 Sodium Chloride 0.9% 1, 400 000 ml @ 100 mls/hr IV . Q10H ONE Rx#:[id number] Oral 200 Other: Voiding Method Toilet # Voids 3 # Bowel Movements 0 - Exam GENERAL: The patient is alert and oriented x3, not in any acute distress. Well developed, well nourished. HEENT: Pupils are round and equally reacting to light. EOMI. No scleral icterus. No conjunctival pallor. Normocephalic, atraumatic. No pharyngeal erythema. No thyromegaly. CARDIOVASCULAR: S1 and S2 present. No murmurs, rubs, or gallops. PULMONARY: Chest is clear to auscultation, no wheezing or crackles. ABDOMEN: Soft, nontender, nondistended, normoactive bowel sounds. No palpable organomegaly. MUSCULOSKELETAL: No joint swelling or deformity. EXTREMITIES: No cyanosis, clubbing, or pedal edema. In the has significant swelling of the right hand with the couple skin breakdowns unsure of the any hardware in the palmar aspect of the hand with the local is of temperature and tenderness. NEUROLOGICAL: Gross neurological examination did not reveal any focal deficits. SKIN: No rashes - Labs CBC & Chem 7: 03/30/17 07:15 03/30/17 07:15 Labs: Abnormal Lab Results - Last 24 Hours (Table) 10/01/17 10/01/17 Range/Units 07:15 07:15 Plt Count 118 L (150-450) k/uL Glucose 149 H (74-99) mg/dL Microbiology - Last 24 Hours (Table) 03/29/17 16:30 Urine Culture - Preliminary Urine,Clean Catch Assessment and Plan Plan: #1 cellulitis. of the right hand secondary to injury from from using hardware: Arthritic surgery will be consulted patient was switched to vancomycin to cover the skin organisms as the cause for his infection my suspicion is low that he has any retained hardware #2 sepsis secondary to cellulitis: Blood cultures were obtained. #3 psoriasis and gout: Patient will continue with his home medications for that. #4 morbid obesity counseling was provided. #5 nicotine abuse: Counseling was provided and counseling regarding alcohol abuse was provided as well.
[2017-03-30] MEDS ORDERED: VANCOMYCIN TROUGH DUE 1 EACH MISC MISCELLANE ONE (20:00)
[2017-03-30] MEDS: ALLOPURINOL 300 MG TAB PO SCH (21:34)
[2017-03-30] MEDS: COLCHICINE 0.6 MG TAB PO SCH (21:34)
[2017-03-30] MEDS ORDERED: IBUPROFEN 600 MG TAB PO PRN (21:56)
[2017-03-30] MEDS ORDERED: IBUPROFEN 600 MG TAB PO SCH (22:00)
[2017-03-31] MEDS: VANCOMYCIN 2,000 MG in SODIUM CHLORIDE 0.9% 500 ML IVPB SCH ×2 (08:09→20:32)
--- NOTE | 2017-03-31 08:48 | P.PN ---
Progress Note - Text Patient is very pleasant 56-year-old male who is seen and examined at bedside for follow-up evaluation for cellulitis, pain, and swelling the right hand and upper extremity. Since pooja seen and examined yesterday, the erythema and swelling has had some improvement but he continues to have significant pain on the palmar side of the right hand. He did have a slight elevation in temperature with his temperature being 100.4F last night but is currently 97.9 F this morning. Patient does feel his symptoms are not significantly improving and would like to discuss possibly proceeding forward with surgical intervention. He continues to be followed by medicine. He is currently on vancomycin. Patient states he has been expriencing worsening pain and swelling of the right hand and is having increased difficulty using his right hand with a past week. 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 X-ray imaging showed no evidence of radiopaque foreign body in his right hand. He states his fingers feel stiff and he has difficulty making a fist. He was having pain extending up into the forearm yesterday. He states he does have a history of significant plaque psoriasis on his hands with a firm bump on the palmar side of his right hand. He denies any specific injury to the right hand. He is not currently experiencing nausea, vomiting, fever, chills. He is currently nothing by mouth status. Physical Exam: Patient is awake, alert, and oriented 3 Vital signs stable Good chest excursion with deep inspiration and expiration Evidence of generalized swelling over the fingers, hand, and wrist of the right upper extremity that has had some improvement as compared yesterday Generalized erythema with some improvement compared to yesterday most significant over the dorsal aspect of the hand extending up to the lower third of the right forearm Significant pain with palpation over the palmar aspect of the right hand No pain with palpation over the right wrist or forearm Evidence of significant skin changes with scratches and some plaque psoriasis on the palmar side of the right hand No evidence of specific infection site of the right hand; no evidence of significant raised lesion; no active drainage of the hand or right upper extremity Neurovascular intact right upper extremity Difficulty with making a fist with the right hand Patient is able to wiggle all fingers and thumb of the right hand Active full range of motion of the right elbow and shoulder without significant difficulty Pertinent studies X-ray of the right hand: No acute osseous lesion; No evidence of radiopaque foreign body; no evidence of fracture dislocation Assessment: Cellulitis the right hand and upper extremity Right hand pain and swelling Plaque psoriasis of the hands Plan: 1. Patient has had some improvement in terms of swelling and erythema of the right hand and upper extremity but has not had any significant improvement of the pain at the palmar side of his right hand. We'll currently scheduled for him to undergo an irrigation and debridement of the right hand today, 03/31/2017 , with Dr. Donavan Nelson. Patient will continue to be nothing by mouth status until following surgical intervention. I discussed the issues with the patient' s right hand with the patient and answered all his questions to the best of my ability and the patient understands. We discussed the risk of surgical intervention and alternative treatment options. Risk of surgical intervention is explained in detail including but not limited to risk of bleeding, risk of infection, risk of need for further surgery, decreased loss of motion of function, malunion, nonunion, nerve damage, paralysis, heart attack, , as well as the fact that surgery may not alleviate his symptoms. I answered all the patient's questions at this my ability. Patient would like to proceed forward with surgical intervention and will sign informed consent. We will continue to follow patient closely. 2. Continue pain control 3. Medicine to continue following the patient for cellulitis and his other medical diagnoses
[2017-03-31] MEDS: SODIUM CHLORIDE 0.9% 1,000 ML IV SCH ×2 (09:57→23:01)
[2017-03-31] MEDS: ALLOPURINOL 300 MG TAB PO SCH (09:59)
[2017-03-31] MEDS: COLCHICINE 0.6 MG TAB PO SCH (09:59)
[2017-03-31] MEDS ORDERED: IV FLUID CONTINUATION 1,000 ML IV ONE (11:50)
[2017-03-31] MEDS ORDERED: ONDANSETRON 4 MG/2 ML VIAL IVP ONE (12:08)
--- NOTE | 2017-03-31 13:15 | P.PN ---
Subjective Principal diagnosis: Patient was admitted secondary to hardware injury of the right palmar aspect with cellulitis and swelling patient still has swelling cellulitis appears to have some improvement. Patient was evaluated by orthopedic surgery who will further evaluate and if needed exploration tomorrow. Patient will remain nothing by mouth after midnight today 03/31/2017 Still has a given swelling although redness and pain did improve patient is going for surgical expiration for any possible remaining hardware in the hand No significant improvement in his right hand swelling but cellulitis overall did improve pain did improve patient denied any cough chest pain, nausea, vomiting.. Objective - Vital Signs Vital signs: Vital Signs Temp 98.5 F 03/31/17 11:53 Pulse 77 03/31/17 11:53 Resp 16 03/31/17 11:53 BP 153/71 03/31/17 11:53 Pulse Ox 95 03/31/17 11:53 Intake & Output 03/30/17 03/31/17 03/31/17 18:59 06:59 18:59 Other: Voiding Method Toilet # Voids 1 3 1 - Exam GENERAL: The patient is alert and oriented x3, not in any acute distress. Well developed, well nourished. HEENT: Pupils are round and equally reacting to light. EOMI. No scleral icterus. No conjunctival pallor. Normocephalic, atraumatic. No pharyngeal erythema. No thyromegaly. CARDIOVASCULAR: S1 and S2 present. No murmurs, rubs, or gallops. PULMONARY: Chest is clear to auscultation, no wheezing or crackles. ABDOMEN: Soft, nontender, nondistended, normoactive bowel sounds. No palpable organomegaly. MUSCULOSKELETAL: No joint swelling or deformity. EXTREMITIES: No cyanosis, clubbing, or pedal edema. In the has significant swelling of the right hand with the couple skin breakdowns unsure of the any hardware in the palmar aspect of the hand with the local is of temperature and tenderness. NEUROLOGICAL: Gross neurological examination did not reveal any focal deficits. SKIN: No rashes - Labs CBC & Chem 7: 03/30/17 07:15 03/30/17 07:15 Labs: Microbiology - Last 24 Hours (Table) 03/29/17 16:30 Urine Culture - Final Urine,Clean Catch Assessment and Plan Plan: #1 cellulitis. of the right hand secondary to injury from from using hardware: Arthritic surgery will be consulted patient was switched to vancomycin to cover the skin organisms as the cause for his infection my suspicion is low that he has any retained hardware, patient is undergoing surgical expiration today #2 sepsis secondary to cellulitis: Blood cultures were obtained. So far all the cultures are negative #3 psoriasis and gout: Patient will continue with his home medications for that. #4 morbid obesity counseling was provided. #5 nicotine abuse: Counseling was provided and counseling regarding alcohol abuse was provided as well.
[2017-03-31] MEDS ORDERED: MIDAZOLAM 2 MG/2 ML VIAL ONE (13:34)
[2017-03-31] MEDS ORDERED: fentaNYL (PF) 50 MCG/ML 2 ML AMP ONE (13:34)
[2017-03-31] MEDS ORDERED: PROPOFOL 10 MG/ML 20 ML VIAL IV ONE (13:34)
[2017-03-31] MEDS ORDERED: LIDOCAINE 2% INJ 20 MG/ML SQ ONE (13:47)
[2017-03-31] MEDS ORDERED: BUPIVACAINE (PF) 0.5% 30 ML VIAL SQ ONE (13:47)
[2017-03-31] MEDS: HYDROcodone/APAP 5-325MG 1 EACH TAB PO PRN ×2 (15:26→23:20)
--- NOTE | 2017-03-31 21:41 | P.CONS ---
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 He developed increasing pain swelling and erythema to his right hand. He then had increasing difficulties of utilizing his right hand to the point in time he was having severe pain and discomfort ascending his arm. Because of this he presented to the emergency center. There x-rays were performed that failed to reveal evidence of a foreign body. However extensive swelling was noted to the palmar surface of the hand with abnormal skin from his psoriasis in the extensive swelling to the hand onto the forearm. With this he was seen by orthopedics. With the lack of improvement after 24 hours of antibiotic therapy the patient was taken to have removed today and had incision and drainage of the palmar surface. Complete operative findings are in process at this time. The patient is postoperative at this time and pain is under good control. Is very concerned about his hand. We discussed that loss of the hand is extremely unusual in this situation. After surgical intervention antibiotic therapy usually there is excellent outcome. The patient is time is denying further high-grade fevers, chills or rigors. Review of Systems HEENT:Denies headache or acute visual change. Denies sinus or mouth discomforts. Denies neck stiffness or pain. Denies significant oral cavity pain. Denies difficulty on swallowing. Lungs: Denies significant shortness of breath, cough, sputum production, or hemoptysis. Cardiovascular: Denies significant shortness of breath, chest pain, chest wall pain, orthopnea, dyspnea on exertion, syncope Gastrointestinal:Denies nausea, vomiting, diarrhea, constipation, hematemesis, melena, hematochezia. No no significant change of bowel habit noticed. Musculoskeletal: Significant swelling to the right hand as noted in the HPI knee has chronic musculoskeletal complaints Skin: Chronic dermatitis from his plaque psoriasis no new lesions at this time except for the significant infection to the right hand Neuro: Denies headache or visual change. Denies any new onset weakness or difficulty with ambulation. Denies falls or seizures. Psychiatric:Denies anxiety or depression. Endocrine: Denies significant fatigue, denies significant weight loss or weight gain. Past Medical History Past Medical History: No Reported History Additional Past Medical History / Comment(s): hx. kidney stones, psoriasis, gout. Patient relates as a child he had measles. This resulted in his need for tracheostomy and he relates some of his severe chronic difficulties and has body has History of Any Multi-Drug Resistant Organisms: None Reported Past Surgical History: Bowel Resection, Orthopedic Surgery Additional Past Surgical History / Comment(s): tracheotomy as a child, ORIF left leg Past Anesthesia/Blood Transfusion Reactions: No Reported Reaction Past Psychological History: No Psychological Hx Reported Additional Psychological History / Comment(s): and lives at the and the family home. [place] [employer] [place]. Tobacco smoker until 15 years ago. Occasional alcohol use but no recreational drug use. No international travel. No animal exposures Smoking Status: Former smoker Past Alcohol Use History: Daily Additional Past Alcohol Use History / Comment(s): 3-4 beers daily Past Drug Use History: None Reported - Past Family History Father Additional Family Medical History / Comment(s): parkinsons, skin CA Mother Family Medical History: Rheumatoid Arthritis (RA) Medications and Allergies Home Medications and Allergies Comment(s): Current Medications Hydrocodone Bitart/Acetaminophen ([place] 5-325) 1 each PO Q6HR PRN PRN Reason: Pain Last Admin: 03/31/17 15:26 Dose: 1 each Allopurinol (Zyloprim) 300 mg PO DAILY MARY Last Admin: 03/31/17 09:59 Dose: Not Given Colchicine (Colcrys) 0.6 mg PO DAILY [facility] Last Admin: 03/31/17 09:59 Dose: Not Given Sodium Chloride (Saline 0.9%) 1,000 mls @ 100 mls/hr IV .Q10H MARY Last Admin: 03/31/17 09:57 Dose: Not Given Vancomycin HCl 2,000 mg/ (Sodium Chloride) 500 mls @ 167 mls/hr IVPB Q12H MARY Last Admin: 03/31/17 20:32 Dose: 167 mls/hr Ibuprofen (Motrin) 600 mg PO TID PRN PRN Reason: Fever Last Admin: 03/30/17 22:22 Dose: 600 mg Home Medications Medication Instructions Recorded Confirmed Type Allopurinol [Zyloprim] 300 mg PO DAILY 03/29/17 03/29/17 History Colchicine [Colcrys] 0.6 mg PO DAILY 03/29/17 03/29/17 History Meloxicam [Mobic] 15 mg PO DAILY 03/29/17 03/29/17 History diphenhydrAMINE HCL [Benadryl] 25 mg PO HS 03/29/17 03/29/17 History Allergies Allergy/AdvReac Type Severity Reaction Status Date / Time Latex, Natural Rubber AdvReac Rash/Hives Verified 03/29/17 10:28 Physical Exam Vitals: Vital Signs Temp Pulse Pulse Pulse Resp BP Pulse Ox 03/31/17 19:35 97.1 F L 84 16 136/70 94 L 03/31/17 16:00 67 145/87 03/31/17 15:45 74 162/92 03/31/17 15:30 76 170/107 03/31/17 15:15 72 141/76 03/31/17 15:00 76 141/76 03/31/17 14:45 98.2 F 78 16 139/83 92 L 03/31/17 14:30 79 18 142/77 100 03/31/17 14:15 76 16 146/73 92 L 03/31/17 14:00 87 18 127/67 95 03/31/17 13:59 73 16 129/71 94 L 03/31/17 11:53 98.5 F 77 16 153/71 95 03/31/17 10:58 143/79 03/31/17 08:00 97.9 F 70 16 166/82 96 03/31/17 01:45 97.7 F 74 16 129/85 96 03/31/17 00:00 16 Intake and Output 03/31/17 03/31/17 03/31/17 06:59 14:59 22:59 Intake Total 1000 180 Output Total 5 Balance 995 180 Intake: IV 300 Intake, IV Titration 700 Amount Sodium Chloride 0.9% 1, 200 000 ml @ 100 mls/hr IV . Q10H MARY Rx#:[id number] Vancomycin 2,000 mg In 500 Sodium Chloride 0.9% 500 ml @ 167 mls/hr IVPB Q12H MARY Rx#:[id number] Oral 180 Output: Estimated Blood Loss 5 Other: Voiding Method Toilet # Voids 3 1 Pleasant 56-year-old male who does have obesity, is postoperative with some discomfort but is without evidence of fever or chill at this time HEENT: Anicteric conjunctiva are pink and moist nasal mucosa grossly intact without significant lesions, there is no thrush. Neck: The neck is supple without significant lymphadenopathy or thyromegaly. Lungs: Symmetrical air entry is noted, rare expiratory wheezes are scattered. No bronchial sounds are heard. Heart: Regular rate and rhythm with an audible S1-S2, no S3 no S4. There is no significant murmur click or rub, PMI was nondisplaced. Abdomen: Positive bowel sounds soft and nontender without palpable masses or organomegaly. There was no guarding or rebound. Extremities: Left lower extremity has a history of the ORIF no open lesions on the lower extremities at this time. Left upper extremity is intact. The right upper extremity reveals evidence of the swelling and the significant post operative dressing. There is mild redness on the forearm. No epitrochlear or axillary lymphadenopathy is noted on the right extremity. No other abnormal lymph nodes are noted. Neuro: Awake alert oriented to person place and time. There are no acute new gross focal sensory motor deficits. Results CBC & Chem 7: 03/30/17 07:15 03/30/17 07:15 Labs: Microbiology - Last 24 Hours (Table) 03/29/17 16:30 Urine Culture - Final Urine,Clean Catch Laboratory Results WBC 7.8 k/uL (3.8-10.6) 03/30/17 07:15 RBC 5.29 m/uL (4.30-5.90) 03/30/17 07:15 Hgb 16.1 gm/dL (13.0-17.5) 03/30/17 07:15 Hct 50.6 % (39.0-53.0) 03/30/17 07:15 MCV 95.6 fL (80.0-100.0) 03/30/17 07:15 MCH 30.5 pg (25.0-35.0) 03/30/17 07:15 MCHC 31.9 g/dL (31.0-37.0) 03/30/17 07:15 RDW 14.3 % (11.5-15.5) 03/30/17 07:15 Plt Count 118 k/uL (150-450) L 03/30/17 07:15 Neutrophils % 77 % 03/29/17 07:40 Lymphocytes % 13 % 03/29/17 07:40 Monocytes % 7 % 03/29/17 07:40 Eosinophils % 2 % 03/29/17 07:40 Basophils % 1 % 03/29/17 07:40 Neutrophils # 7.6 k/uL (1.3-7.7) 03/29/17 07:40 Lymphocytes # 1.3 k/uL (1.0-4.8) 03/29/17 07:40 Monocytes # 0.7 k/uL (0-1.0) 03/29/17 07:40 Eosinophils # 0.2 k/uL (0-0.7) 03/29/17 07:40 Basophils # 0.1 k/uL (0-0.2) 03/29/17 07:40 PT 10.4 sec (9.0-12.0) 03/29/17 07:40 INR 1.0 (<1.2) 03/29/17 07:40 APTT 22.5 sec (22.0-30.0) 03/29/17 07:40 Sodium 141 mmol/L (137-145) 03/30/17 07:15 Potassium 4.6 mmol/L (3.5-5.1) 03/30/17 07:15 Chloride 107 mmol/L (98-107) 03/30/17 07:15 Carbon Dioxide 24 mmol/L (22-30) 03/30/17 07:15 Anion Gap 10 mmol/L 03/30/17 07:15 BUN 9 mg/dL (9-20) 03/30/17 07:15 Creatinine 0.73 mg/dL (0.66-1.25) 03/30/17 07:15 Est GFR (MDRD) Af Amer >60 (>60 ml/min/1.73 sqM) 03/30/17 07:15 Est GFR (MDRD) Non-Af >60 (>60 ml/min/1.73 sqM) 03/30/17 07:15 Glucose 149 mg/dL (74-99) H 03/30/17 07:15 Plasma Lactic Acid [place] 1.6 mmol/L (0.7-2.0) 03/29/17 07:40 Calcium 9.1 mg/dL (8.4-10.2) 03/30/17 07:15 Total Bilirubin 1.6 mg/dL (0.2-1.3) H 03/29/17 07:40 AST 19 U/L (17-59) 03/29/17 07:40 ALT 33 U/L (21-72) 03/29/17 07:40 Alkaline Phosphatase 61 U/L (38-126) 03/29/17 07:40 Total Protein 6.6 g/dL (6.3-8.2) 03/29/17 07:40 Albumin 4.2 g/dL (3.5-5.0) 03/29/17 07:40 Urine Color Light Yellow 03/29/17 16:30 Urine Appearance Clear (Clear) 03/29/17 16:30 Urine pH 6.5 (5.0-8.0) 03/29/17 16:30 Ur Specific [place] 1.010 (1.001-1.035) 03/29/17 16:30 Urine Protein Negative (Negative) 03/29/17 16:30 Urine Glucose (UA) Negative (Negative) 03/29/17 16:30 Urine Ketones Negative (Negative) 03/29/17 16:30 Urine Blood Negative (Negative) 03/29/17 16:30 Urine Nitrite Negative (Negative) 03/29/17 16:30 Urine Bilirubin Negative (Negative) 03/29/17 16:30 Urine Urobilinogen <2.0 mg/dL (<2.0) 03/29/17 16:30 Ur Leukocyte Esterase Negative (Negative) 03/29/17 16:30 Vancomycin Trough 23.8 ug/mL 03/30/17 19:36 Microbiology 03/29/17 16:30 Urine,Clean Catch Urine Culture - Final Assessment and Plan (1) Abscess of right hand Narrative/Plan: 56-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 Increasing difficulty with utilization of his hand unable to make a fist. Subsequent was admitted and has been seen by orthopedics. Given his lack of improvement with antimicrobial therapy he's been taking of the operative room today for incision and drainage of a palmar abscess. Full details of the surgical intervention arm process at this time. The patient is comfortable after surgery. He is able to eat his lunch with no difficulties. He is denying further high-grade fevers, chills or rigors. However the hand was absently miserable when he came to hospital. Systemic concerns will be to deep palmar space infection. Surgical cultures are in progress. This will further help clarify the antimicrobial therapy at discharge. An aggressive course of antibiotic therapy is indicated even the potential for loss of hand function. Currently receiving vancomycin therapy, ceftriaxone will be added for coverage is some gram-negative organisms also at this time until cultures are available. Pain control is adequate. We'll check his pre-albumin and ensure he is getting a multivitamin to help with wound healing. Local wound care can be assisted once the surgical wound has been evaluated. Status: Acute (2) Elevated bilirubin Status: Acute (3) Fever Status: Acute
[2017-04-01] MEDS: cefTRIAXone 2,000 MG in SODIUM CHLORIDE 0.9% 100 ML IVPB SCH ×2 (00:25→20:59)
[2017-04-01] MEDS: SODIUM CHLORIDE 0.9% 1,000 ML IV SCH ×3 (05:21→23:50)
[2017-04-01 07:21] LABS: Non-African American GFR(MDRD) >60 (>60 ml/min/1.73 sqM)
[2017-04-01] MEDS: VANCOMYCIN 2,000 MG in SODIUM CHLORIDE 0.9% 500 ML IVPB SCH ×2 (08:13→22:05)
[2017-04-01] MEDS: ALLOPURINOL 300 MG TAB PO SCH (08:35)
[2017-04-01] MEDS: COLCHICINE 0.6 MG TAB PO SCH (08:36)
--- NOTE | 2017-04-01 09:32 | P.PN ---
Subjective Principal diagnosis: Status post I&D right hand This is a 56 year-old male post I&D of the right hand. This is post-op day 1. The patient was evaluated at the bedside today. The patient denies nausea, vomiting, abdominal pain, shortness of breath, and chest pain this morning. He states his pain is controlled at this time. He states his hand is much improved. The patient is currently receiving vancomycin and Rocephin per infectious disease. We are awaiting culture results. Objective - Vital Signs Vital signs: Vital Signs Temp 98.3 F 04/01/17 07:07 Pulse 73 04/01/17 07:07 Resp 17 04/01/17 07:07 BP 127/81 04/01/17 07:07 Pulse Ox 97 04/01/17 07:07 Intake & Output 03/31/17 04/01/17 04/01/17 18:59 06:59 18:59 Intake Total 1180 250 Output Total 5 Balance 1175 250 Intake: IV 300 Intake, IV Titration 700 250 Amount Sodium Chloride 0.9% 1, 200 000 ml @ 100 mls/hr IV . Q10H MARY Rx#:[id number] Vancomycin 2,000 mg In 500 250 Sodium Chloride 0.9% 500 ml @ 167 mls/hr IVPB Q12H MARY Rx#:[id number] Oral 180 Output: Estimated Blood Loss 5 Other: Voiding Method Toilet Toilet # Voids 1 1 - Exam The patient does not appear in acute distress. Alert and orientated x3. Dressing is clean dry and intact. Incision appears fine with packing in place. Swelling and redness has improved. Finger stiffness is present. Thenar muscle is functioning. Sensation and circulatory status is intact. - Labs CBC & Chem 7: 03/30/17 07:15 04/01/17 06:41 Labs: Microbiology - Last 24 Hours (Table) 03/31/17 13:52 Anaerobic Culture - Preliminary Hand - Right 03/31/17 13:52 Wound Culture - Preliminary Hand - Right Assessment and Plan (1) Status post incision and drainage Status: Acute (2) Abscess of right hand Status: Acute (3) Cellulitis of right hand Status: Acute Plan: The clinical and operative findings were discussed with the patient. He'll continue on IV antibiotics per infectious disease. We are awaiting culture results for final antibiotic recommendations. Daily wound care with packing. Continue taking control. We will continue to follow the patient closely.
[2017-04-01] MEDS: MULTIVITAMINS, THERA 1 EACH TAB PO SCH (11:56)
[2017-04-01] MEDS: HYDROcodone/APAP 5-325MG 1 EACH TAB PO PRN ×2 (14:53→21:09)
--- NOTE | 2017-04-01 16:13 | P.PN ---
Subjective Principal diagnosis: Patient was admitted secondary to hardware injury of the right palmar aspect with cellulitis and swelling patient still has swelling cellulitis appears to have some improvement. Patient was evaluated by orthopedic surgery who will further evaluate and if needed exploration tomorrow. Patient will remain nothing by mouth after midnight today 03/31/2017 Still has a given swelling although redness and pain did improve patient is going for surgical expiration for any possible remaining hardware in the hand 04/01/2017 Patient underwent incision and drainage of the right hand swelling patient's wound cultures are positive showing gram-positive cocci patient was a valid by infectious disease who added ceftriaxone. Patient's swelling improved quite a bit and his symptoms improved significantly No significant improvement in his right hand swelling but cellulitis overall did improve pain did improve patient denied any cough chest pain, nausea, vomiting.. Objective - Vital Signs Vital signs: Vital Signs Temp 98.2 F 04/01/17 15:00 Pulse 78 04/01/17 15:00 Resp 17 04/01/17 15:00 BP 169/86 04/01/17 15:00 Pulse Ox 96 04/01/17 15:00 Intake & Output 03/31/17 04/01/17 04/01/17 18:59 06:59 18:59 Intake Total 1180 250 Output Total 5 Balance 1175 250 Intake: IV 300 Intake, IV Titration 700 250 Amount Sodium Chloride 0.9% 1, 200 000 ml @ 100 mls/hr IV . Q10H MARY Rx#:[id number] Vancomycin 2,000 mg In 500 250 Sodium Chloride 0.9% 500 ml @ 167 mls/hr IVPB Q12H MARY Rx#:[id number] Oral 180 Output: Estimated Blood Loss 5 Other: Voiding Method Toilet Toilet # Voids 1 1 4 - Exam GENERAL: The patient is alert and oriented x3, not in any acute distress. Well developed, well nourished. HEENT: Pupils are round and equally reacting to light. EOMI. No scleral icterus. No conjunctival pallor. Normocephalic, atraumatic. No pharyngeal erythema. No thyromegaly. CARDIOVASCULAR: S1 and S2 present. No murmurs, rubs, or gallops. PULMONARY: Chest is clear to auscultation, no wheezing or crackles. ABDOMEN: Soft, nontender, nondistended, normoactive bowel sounds. No palpable organomegaly. MUSCULOSKELETAL: No joint swelling or deformity. EXTREMITIES: No cyanosis, clubbing, or pedal edema. patient is status post incision and drainage of the right hand which is postsurgically packed significant improvement in his swelling and pain NEUROLOGICAL: Gross neurological examination did not reveal any focal deficits. SKIN: No rashes - Labs CBC & Chem 7: 03/30/17 07:15 04/01/17 06:41 Labs: Abnormal Lab Results - Last 24 Hours (Table) 04/01/17 Range/Units 06:41 Prealbumin 16.0 L (18.0-42.0) mg/dL Microbiology - Last 24 Hours (Table) 03/31/17 13:52 Gram Stain - Preliminary Hand - Right Wound Culture - Preliminary 03/31/17 13:52 Anaerobic Culture - Preliminary Hand - Right Assessment and Plan Plan: #1 cellulitis. of the right hand secondary to injury from from using hardware: status post incision and drainage and wound cultures are showing gram-positive cocci antibiotics as mentioned above. #2 sepsis secondary to cellulitis: Blood cultures were obtained. So far all the cultures are negative #3 psoriasis and gout: Patient will continue with his home medications for that. #4 morbid obesity counseling was provided. #5 nicotine abuse: Counseling was provided and counseling regarding alcohol abuse was provided as well.
--- NOTE | 2017-04-01 23:06 | P.PN ---
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 He developed increasing pain swelling and erythema to his right hand. He then had increasing difficulties of utilizing his right hand to the point in time he was having severe pain and discomfort ascending his arm. Because of this he presented to the emergency center. There x-rays were performed that failed to reveal evidence of a foreign body. However extensive swelling was noted to the palmar surface of the hand with abnormal skin from his psoriasis in the extensive swelling to the hand onto the forearm. With this he was seen by orthopedics. With the lack of improvement after 24 hours of antibiotic therapy the patient was taken to have removed today and had incision and drainage of the palmar surface. Complete operative findings are in process at this time. The patient is postoperative at this time and pain is under good control. Is very concerned about his hand. We discussed that loss of the hand is extremely unusual in this situation. After surgical intervention antibiotic therapy usually there is excellent outcome. The patient is time is denying further high-grade fevers, chills or rigors. The patient has had a surgical incision and drainage of the hand. It is related from the orthopedic surgeon that abscess was found. Objective - Vital Signs Vital signs: Vital Signs Temp 98.7 F 04/01/17 19:49 Pulse 73 04/01/17 19:49 Resp 16 04/01/17 19:49 BP 133/81 04/01/17 19:49 Pulse Ox 95 04/01/17 19:49 Intake & Output 04/01/17 04/01/17 04/02/17 06:59 18:59 06:59 Intake Total 250 100 Balance 250 100 Intake: Intake, IV Titration 250 100 Amount Vancomycin 2,000 mg In 250 Sodium Chloride 0.9% 500 ml @ 167 mls/hr IVPB Q12H MARY Rx#:[id number] cefTRIAXone 2,000 mg In 100 Sodium Chloride 0.9% 100 ml @ 100 mls/hr IVPB HS MARY Rx#:[id number] Other: Voiding Method Toilet Toilet # Voids 1 4 - Exam Regino 56-year-old male who does have obesity, is postoperative with some discomfort but is without evidence of fever or chill at this time HEENT: Anicteric conjunctiva are pink and moist nasal mucosa grossly intact without significant lesions, there is no thrush. Neck: The neck is supple without significant lymphadenopathy or thyromegaly. Lungs: Symmetrical air entry is noted, rare expiratory wheezes are scattered. No bronchial sounds are heard. Heart: Regular rate and rhythm with an audible S1-S2, no S3 no S4. There is no significant murmur click or rub, PMI was nondisplaced. Abdomen: Positive bowel sounds soft and nontender without palpable masses or organomegaly. There was no guarding or rebound. Extremities: Left lower extremity has a history of the ORIF no open lesions on the lower extremities at this time. Left upper extremity is intact. The right upper extremity reveals evidence improved swelling, as well as improved function to the hand. It is still very painful. There is mild redness on the forearm. No epitrochlear or axillary lymphadenopathy is noted on the right extremity. No other abnormal lymph nodes are noted. Neuro: Awake alert oriented to person place and time. There are no acute new gross focal sensory motor deficits. - Labs CBC & Chem 7: 03/30/17 07:15 04/01/17 06:41 Labs: Abnormal Lab Results - Last 24 Hours (Table) 04/01/17 Range/Units 06:41 Prealbumin 16.0 L (18.0-42.0) mg/dL Microbiology - Last 24 Hours (Table) 03/31/17 13:52 Gram Stain - Preliminary Hand - Right Wound Culture - Preliminary 03/31/17 13:52 Anaerobic Culture - Preliminary Hand - Right Laboratory Results WBC 7.8 k/uL (3.8-10.6) 03/30/17 07:15 RBC 5.29 m/uL (4.30-5.90) 03/30/17 07:15 Hgb 16.1 gm/dL (13.0-17.5) 03/30/17 07:15 Hct 50.6 % (39.0-53.0) 03/30/17 07:15 MCV 95.6 fL (80.0-100.0) 03/30/17 07:15 MCH 30.5 pg (25.0-35.0) 03/30/17 07:15 MCHC 31.9 g/dL (31.0-37.0) 03/30/17 07:15 RDW 14.3 % (11.5-15.5) 03/30/17 07:15 Plt Count 118 k/uL (150-450) L 03/30/17 07:15 Neutrophils % 77 % 03/29/17 07:40 Lymphocytes % 13 % 03/29/17 07:40 Monocytes % 7 % 03/29/17 07:40 Eosinophils % 2 % 03/29/17 07:40 Basophils % 1 % 03/29/17 07:40 Neutrophils # 7.6 k/uL (1.3-7.7) 03/29/17 07:40 Lymphocytes # 1.3 k/uL (1.0-4.8) 03/29/17 07:40 Monocytes # 0.7 k/uL (0-1.0) 03/29/17 07:40 Eosinophils # 0.2 k/uL (0-0.7) 03/29/17 07:40 Basophils # 0.1 k/uL (0-0.2) 03/29/17 07:40 PT 10.4 sec (9.0-12.0) 03/29/17 07:40 INR 1.0 (<1.2) 03/29/17 07:40 APTT 22.5 sec (22.0-30.0) 03/29/17 07:40 Sodium 141 mmol/L (137-145) 03/30/17 07:15 Potassium 4.6 mmol/L (3.5-5.1) 03/30/17 07:15 Chloride 107 mmol/L (98-107) 03/30/17 07:15 Carbon Dioxide 24 mmol/L (22-30) 03/30/17 07:15 Anion Gap 10 mmol/L 03/30/17 07:15 BUN 9 mg/dL (9-20) 03/30/17 07:15 Creatinine 0.68 mg/dL (0.66-1.25) 04/01/17 06:41 Est GFR (MDRD) Af Amer >60 (>60 ml/min/1.73 sqM) 04/01/17 06:41 Est GFR (MDRD) Non-Af >60 (>60 ml/min/1.73 sqM) 04/01/17 06:41 Glucose 149 mg/dL (74-99) H 03/30/17 07:15 Plasma Lactic Acid Zachery 1.6 mmol/L (0.7-2.0) 03/29/17 07:40 Calcium 9.1 mg/dL (8.4-10.2) 03/30/17 07:15 Total Bilirubin 1.6 mg/dL (0.2-1.3) H 03/29/17 07:40 AST 19 U/L (17-59) 03/29/17 07:40 ALT 33 U/L (21-72) 03/29/17 07:40 Alkaline Phosphatase 61 U/L (38-126) 03/29/17 07:40 Total Protein 6.6 g/dL (6.3-8.2) 03/29/17 07:40 Albumin 4.2 g/dL (3.5-5.0) 03/29/17 07:40 Prealbumin 16.0 mg/dL (18.0-42.0) L 04/01/17 06:41 Urine Color Light Yellow 03/29/17 16:30 Urine Appearance Clear (Clear) 03/29/17 16:30 Urine pH 6.5 (5.0-8.0) 03/29/17 16:30 Ur Specific [place] 1.010 (1.001-1.035) 03/29/17 16:30 Urine Protein Negative (Negative) 03/29/17 16:30 Urine Glucose (UA) Negative (Negative) 03/29/17 16:30 Urine Ketones Negative (Negative) 03/29/17 16:30 Urine Blood Negative (Negative) 03/29/17 16:30 Urine Nitrite Negative (Negative) 03/29/17 16:30 Urine Bilirubin Negative (Negative) 03/29/17 16:30 Urine Urobilinogen <2.0 mg/dL (<2.0) 03/29/17 16:30 Ur Leukocyte Esterase Negative (Negative) 03/29/17 16:30 Vancomycin Trough 23.8 ug/mL 03/30/17 19:36 Microbiology 03/31/17 13:52 Hand - Right Gram Stain - Preliminary 03/31/17 13:52 Hand - Right Wound Culture - Preliminary 03/31/17 13:52 Hand - Right Anaerobic Culture - Preliminary 03/29/17 16:30 Urine,Clean Catch Urine Culture - Final Assessment and Plan (1) Abscess of right hand Narrative/Plan: 56-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 Increasing difficulty with utilization of his hand unable to make a fist. Subsequent was admitted and has been seen by orthopedics. Given his lack of improvement with antimicrobial therapy he's been taking of the operative room today for incision and drainage of a palmar abscess. Full details of the surgical intervention arm process at this time. The patient is comfortable after surgery. He is able to eat his lunch with no difficulties. He is denying further high-grade fevers, chills or rigors. However the hand was absently miserable when he came to hospital. Systemic concerns will be to deep palmar space infection. Surgical cultures are in progress. This will further help clarify the antimicrobial therapy at discharge. An aggressive course of antibiotic therapy is indicated even the potential for loss of hand function. Currently receiving vancomycin therapy, ceftriaxone will be added for coverage is some gram-negative organisms also at this time until cultures are available. Pain control is adequate. Prealbumin was low and will need improved protein supplementation to help his healing. Local wound care with absorptive silver can be utilized. Will initiate workup for outpatient intravenous antibiotic therapy. Given the depth of the infection and the involvement of his dominant hand we'll treat as a teen of synovitis with a 21 day course of antibiotic therapy. We'll plan Rocephin unless MRSA has been confirmed. Status: Acute (2) Elevated bilirubin Status: Acute (3) Fever Status: Acute
[2017-04-02] MEDS ORDERED: VANCOMYCIN TROUGH DUE 1 EACH MISC MISCELLANE ONE (08:00)
[2017-04-02 08:30] LABS: CH 30.7; CHCM 32.8; HCT 49.2 % (39.0-53.0); HDW 2.47; HGB 15.4 gm/dL (13.0-17.5); MCH 29.6 pg (25.0-35.0); MCHC 31.4 g/dL (31.0-37.0); MCV 94.3 fL (80.0-100.0); Mean Platelet Volume 8.1; RBC 5.22 m/uL (4.30-5.90); RDW 14.4 % (11.5-15.5); WBC 5.9 k/uL (3.8-10.6)
[2017-04-02] MEDS ORDERED: HYDROmorphone 1 MG/ML 1 ML SYRINGE IVP PRN (08:43)
[2017-04-02 08:46] LABS: Anion Gap 10 mmol/L; Blood Urea Nitrogen 15 mg/dL (9-20); Calcium 9.7 mg/dL (8.4-10.2); Carbon Dioxide 26 mmol/L (22-30); Chloride 105 mmol/L (98-107); Glucose 97 mg/dL (74-99); Non-African American GFR(MDRD) >60 (>60 ml/min/1.73 sqM); Potassium 4.5 mmol/L (3.5-5.1); Sodium 141 mmol/L (137-145)
[2017-04-02] MEDS: COLCHICINE 0.6 MG TAB PO SCH (08:46)
[2017-04-02] MEDS: ALLOPURINOL 300 MG TAB PO SCH (08:46)
--- NOTE | 2017-04-02 08:48 | P.PN ---
Subjective Principal diagnosis: Status post I&D right hand This is a 56 year-old male post I&D of the right hand. This is post-op day 2. The patient was evaluated at the bedside today. The patient denies nausea, vomiting, abdominal pain, shortness of breath, and chest pain this morning. He states his pain is controlled at this time. He states his hand is much improved. The patient is currently receiving vancomycin and Rocephin per infectious disease. Preliminary culture results show MRSA. He is scheduled for a PICC line today. Objective - Vital Signs Vital signs: Vital Signs Temp 97.8 F 04/02/17 01:10 Pulse 63 04/02/17 01:10 Resp 17 04/02/17 01:10 BP 158/78 04/02/17 01:10 Pulse Ox 93 L 04/02/17 01:10 Intake & Output 04/01/17 04/02/17 04/02/17 18:59 06:59 18:59 Intake Total 1600 180 Balance 1600 180 Intake: Intake, IV Titration 1100 Amount Sodium Chloride 0.9% 1, 1000 000 ml @ 100 mls/hr IV . Q10H MARY Rx#:[id number] cefTRIAXone 2,000 mg In 100 Sodium Chloride 0.9% 100 ml @ 100 mls/hr IVPB HS MARY Rx#:[id number] Oral 500 180 Other: Voiding Method Toilet # Voids 4 2 - Exam The patient does not appear in acute distress. Alert and orientated x3. Dressing is clean dry and intact. Swelling and redness has improved. Finger stiffness is present. Thenar muscle is functioning. Sensation and circulatory status is intact. - Labs CBC & Chem 7: 03/30/17 07:15 04/01/17 06:41 Labs: Abnormal Lab Results - Last 24 Hours (Table) 04/01/17 Range/Units 06:41 Prealbumin 16.0 L (18.0-42.0) mg/dL Microbiology - Last 24 Hours (Table) 03/31/17 13:52 Gram Stain - Preliminary Hand - Right Wound Culture - Preliminary Presumptive MRSA Assessment and Plan (1) Status post incision and drainage Status: Acute (2) Abscess of right hand Status: Acute (3) Cellulitis of right hand Status: Acute Plan: The clinical and operative findings were discussed with the patient. He'll continue on IV antibiotics per infectious disease. PICC line scheduled for today. We will consult case management to assist with antibiotic therapy and wound care arrangements. Wound packing with Aquacel Silver rope. Continue pain control. The patient may be discharged home when arrangement have been made. We will continue to follow the patient closely.
[2017-04-02 09:03] VITALS: RESP 16
[2017-04-02] MEDS: SODIUM CHLORIDE 0.9% 1,000 ML IV SCH (10:33)
[2017-04-02] MEDS: VANCOMYCIN 2,000 MG in SODIUM CHLORIDE 0.9% 500 ML IVPB SCH (10:34)
[2017-04-02] MEDS ORDERED: DAPTOmycin 500 MG in SODIUM CHLORIDE 0.9% 50 ML IV SCH (11:00)
[2017-04-02] MEDS: HYDROcodone/APAP 5-325MG 1 EACH TAB PO PRN (11:37)
[2017-04-02] MEDS: MULTIVITAMINS, THERA 1 EACH TAB PO SCH (11:38)
[2017-04-02] MEDS ORDERED: LIDOCAINE 2% INJ 20 MG/ML SQ ONE (14:08)
--- NOTE | 2017-04-02 15:10 | IR ---
EXAMINATION TYPE: IR cvc insert >=5 years DATE OF EXAM: 04/02/2017 COMPARISON: NONE CLINICAL HISTORY: Infection Needs long-term intravenous access for antibiotics. PROCEDURE: After informed consent, the skin overlying the left basilic vein was localized with ultrasound and no bessie to be compressible and patent. An ultrasound image was obtained and submitted on the patient's c mosqueda. The overlying skin was prepped and draped and Lidocaine was used for local anesthesia. A skin drea was made with a scalpel. Access was gained to the vein under ultrasound guidance with a 21 gau ge needle and a 0.018 inch wire was advanced. Access site was dilated with Peel-Away sheath and cath eter tailored to the appropriate length and advanced such that the distal tip is at the cavoatrial ju nction. Spot image was obtained verifying placement. Catheter was fixed to the skin with suture and a sterile dressing was placed following hemostasis. Catheter was aspirated and flushed with saline. Patient was discharged in stable condition without complication. Maximal barrier technique is utili zed. Ultrasound image is documented on the chart. Ultrasound used with sterile technique. Fluoro time and fluoroscopic images submitted to document procedure: 84 intraoperative images, 0.1 mi nutes fluoroscopy time IMPRESSION: STATUS POST ULTRASOUND AND FLUOROSCOPIC GUIDED PICC LINE PLACEMENT, READY FOR USE. THIS PROCEDURE WAS PERFORMED BY THE UNDERSIGNED.
--- NOTE | 2017-04-02 15:24 | P.DS ---
Providers Date of admission: 03/29/17 10:01 Attending physician: Jeny Oconnor Consults: 03/29/17 13:00 Consult Physician Routine Consulting Provider: Zander Nelson Consult Reason/Comments: right hand cellulitis Do you want consulting provider notified?: Yes 03/31/17 14:54 Consult Physician Routine Consulting Provider: Kuldeep Sotomayor Reason/Comments: antibiotic recommendations Do you want consulting provider notified?: Yes Primary care physician: Ary Butler Hospital Course: Patient was admitted secondary to hardware injury of the right palmar aspect with cellulitis and swelling patient still has swelling cellulitis appears to have some improvement. Patient was evaluated by orthopedic surgery who will further evaluate and if needed exploration tomorrow. Patient will remain nothing by mouth after midnight today 03/31/2017 Still has a given swelling although redness and pain did improve patient is going for surgical expiration for any possible remaining hardware in the hand 04/01/2017 Patient underwent incision and drainage of the right hand swelling patient's wound cultures are positive showing gram-positive cocci patient was a valid by infectious disease who added ceftriaxone. Patient's swelling improved quite a bit and his symptoms improved significantly 04/02/2017 Patient has MRSA and infectious disease wanted to discharge patient on daptomycin for 21 days. PICC line was placed and patient will be discharged today. GENERAL: The patient is alert and oriented x3, not in any acute distress. Well developed, well nourished. HEENT: Pupils are round and equally reacting to light. EOMI. No scleral icterus. No conjunctival pallor. Normocephalic, atraumatic. No pharyngeal erythema. No thyromegaly. CARDIOVASCULAR: S1 and S2 present. No murmurs, rubs, or gallops. PULMONARY: Chest is clear to auscultation, no wheezing or crackles. ABDOMEN: Soft, nontender, nondistended, normoactive bowel sounds. No palpable organomegaly. MUSCULOSKELETAL: No joint swelling or deformity. EXTREMITIES: No cyanosis, clubbing, or pedal edema. patient is status post incision and drainage of the right hand which is postsurgically packed significant improvement in his swelling and pain NEUROLOGICAL: Gross neurological examination did not reveal any focal deficits. SKIN: No rashes #1 cellulitis and abscess. of the right hand secondary to injury from from using hardware:status post incision and drainage and wound cultures showing MRSA #2 sepsis secondary to cellulitis and abscess: Blood cultures were obtained. So far negative #3 psoriasis and gout: Patient will continue with his home medications for that. #4 morbid obesity counseling was provided. #5 nicotine abuse: Counseling was provided and counseling regarding alcohol abuse was provided as well. Plan - Discharge Summary New Discharge Prescriptions: New HYDROcodone/APAP 5-325MG [[place] 5] 1 each PO Q4HR PRN #60 tab PRN Reason: Pain DAPTOmycin [Cubicin] 500 mg IVPB DAILY #21 vial No Action Allopurinol [Zyloprim] 300 mg PO DAILY Meloxicam [Mobic] 15 mg PO DAILY Colchicine [Colcrys] 0.6 mg PO DAILY diphenhydrAMINE HCL [Benadryl] 25 mg PO HS Discharge Medication List Allopurinol [Zyloprim] 300 mg PO DAILY 03/29/17 [History] Colchicine [Colcrys] 0.6 mg PO DAILY 03/29/17 [History] Meloxicam [Mobic] 15 mg PO DAILY 03/29/17 [History] diphenhydrAMINE HCL [Benadryl] 25 mg PO HS 03/29/17 [History] DAPTOmycin [Cubicin] 500 mg IVPB DAILY #21 vial 04/02/17 [Rx] HYDROcodone/APAP 5-325MG [[place] 5] 1 each PO Q4HR PRN #60 tab 04/02/17 [Rx] Follow up Appointment(s)/Referral(s): Kuldeep Sotomayor MD [STAFF PHYSICIAN] - Ary Sandhu MD [Primary Care Provider] - 1-2 days Carl Nelson DO [Doctor of Osteopathic Medicine] - 1 Week Ambulatory/Diagnostic Orders: Basic Metabolic Panel [LAB.AMB] Location: Determined By Patient Complete Blood Count w/diff [LAB.AMB] Location: Determined By Patient Miscellaneous Lab Order [LAB.AMB] Location: Determined By Patient Patient Instructions/Handouts: Cellulitis (DC), Peripherally Inserted Central Catheters and Midline Catheters (GEN) Activity/Diet/Wound Care/Special Instructions: Wound packing with Aquacel Silver rope Friday, Friday, and Friday Continue to work on finger motion Call [facility] with any questions or concerns, . [facility] for wound care [phone] Sotomayor office on 04/03/17 anytime between 8:30 AM and 11:30 AM for daily IV infusion. Discharge Disposition: HOME WITH HOME HEALTH SERVICES
[2017-04-02 15:31] VITALS: PULSE 70; TEMP 97.5
[2017-04-02 15:43] VITALS: BP 138/78
--- NOTE | 2017-04-02 20:59 | P.PN ---
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 He developed increasing pain swelling and erythema to his right hand. He then had increasing difficulties of utilizing his right hand to the point in time he was having severe pain and discomfort ascending his arm. Because of this he presented to the emergency center. There x-rays were performed that failed to reveal evidence of a foreign body. However extensive swelling was noted to the palmar surface of the hand with abnormal skin from his psoriasis in the extensive swelling to the hand onto the forearm. With this he was seen by orthopedics. With the lack of improvement after 24 hours of antibiotic therapy the patient was taken to have removed today and had incision and drainage of the palmar surface. Complete operative findings are in process at this time. The patient is postoperative at this time and pain is under good control. Is very concerned about his hand. We discussed that loss of the hand is extremely unusual in this situation. After surgical intervention antibiotic therapy usually there is excellent outcome. The patient is time is denying further high-grade fevers, chills or rigors. The patient has had a surgical incision and drainage of the hand. It is related from the orthopedic surgeon that abscess was found. And now improving. Objective - Vital Signs Vital signs: Vital Signs Temp 97.5 F L 04/02/17 15:00 Pulse 70 04/02/17 15:00 Resp 16 04/02/17 15:00 BP 138/78 04/02/17 15:43 Pulse Ox 95 04/02/17 15:00 Intake & Output 04/02/17 04/02/17 04/03/17 06:59 18:59 06:59 Intake Total 1600 450 Balance 1600 450 Intake: Intake, IV Titration 1100 50 Amount DAPTOmycin 500 mg In 50 Sodium Chloride 0.9% 50 ml @ 100 mls/hr IV Q24H MARY Rx#:[id number] Sodium Chloride 0.9% 1, 1000 000 ml @ 100 mls/hr IV . Q10H MARY Rx#:[id number] cefTRIAXone 2,000 mg In 100 Sodium Chloride 0.9% 100 ml @ 100 mls/hr IVPB HS MARY Rx#:[id number] Oral 500 400 Other: # Voids 2 - Exam Regino 56-year-old male who does have obesity, is postoperative with some discomfort but is without evidence of fever or chill at this time HEENT: Anicteric conjunctiva are pink and moist nasal mucosa grossly intact without significant lesions, there is no thrush. Neck: The neck is supple without significant lymphadenopathy or thyromegaly. Lungs: Symmetrical air entry is noted, rare expiratory wheezes are scattered. No bronchial sounds are heard. Heart: Regular rate and rhythm with an audible S1-S2, no S3 no S4. There is no significant murmur click or rub, PMI was nondisplaced. Abdomen: Positive bowel sounds soft and nontender without palpable masses or organomegaly. There was no guarding or rebound. Extremities: Left lower extremity has a history of the ORIF no open lesions on the lower extremities at this time. Left upper extremity is intact. The right upper extremity reveals evidence improved swelling, as well as improved function to the hand. It is less painful. There is mild redness on the forearm. No epitrochlear or axillary lymphadenopathy is noted on the right extremity. No other abnormal lymph nodes are noted. Neuro: Awake alert oriented to person place and time. There are no acute new gross focal sensory motor deficits. - Labs CBC & Chem 7: 04/02/17 07:59 04/02/17 07:59 Labs: Microbiology - Last 24 Hours (Table) 03/31/17 13:52 Gram Stain - Final Hand - Right Wound Culture - Final Methicillin resist S. aureus Laboratory Results WBC 5.9 k/uL (3.8-10.6) 04/02/17 07:59 RBC 5.22 m/uL (4.30-5.90) 04/02/17 07:59 Hgb 15.4 gm/dL (13.0-17.5) 04/02/17 07:59 Hct 49.2 % (39.0-53.0) 04/02/17 07:59 MCV 94.3 fL (80.0-100.0) 04/02/17 07:59 MCH 29.6 pg (25.0-35.0) 04/02/17 07:59 MCHC 31.4 g/dL (31.0-37.0) 04/02/17 07:59 RDW 14.4 % (11.5-15.5) 04/02/17 07:59 Plt Count 160 k/uL (150-450) 04/02/17 07:59 Neutrophils % 77 % 03/29/17 07:40 Lymphocytes % 13 % 03/29/17 07:40 Monocytes % 7 % 03/29/17 07:40 Eosinophils % 2 % 03/29/17 07:40 Basophils % 1 % 03/29/17 07:40 Neutrophils # 7.6 k/uL (1.3-7.7) 03/29/17 07:40 Lymphocytes # 1.3 k/uL (1.0-4.8) 03/29/17 07:40 Monocytes # 0.7 k/uL (0-1.0) 03/29/17 07:40 Eosinophils # 0.2 k/uL (0-0.7) 03/29/17 07:40 Basophils # 0.1 k/uL (0-0.2) 03/29/17 07:40 PT 10.4 sec (9.0-12.0) 03/29/17 07:40 INR 1.0 (<1.2) 03/29/17 07:40 APTT 22.5 sec (22.0-30.0) 03/29/17 07:40 Sodium 141 mmol/L (137-145) 04/02/17 07:59 Potassium 4.5 mmol/L (3.5-5.1) 04/02/17 07:59 Chloride 105 mmol/L (98-107) 04/02/17 07:59 Carbon Dioxide 26 mmol/L (22-30) 04/02/17 07:59 Anion Gap 10 mmol/L 04/02/17 07:59 BUN 15 mg/dL (9-20) 04/02/17 07:59 Creatinine 0.72 mg/dL (0.66-1.25) 04/02/17 07:59 Est GFR (MDRD) Af Amer >60 (>60 ml/min/1.73 sqM) 04/02/17 07:59 Est GFR (MDRD) Non-Af >60 (>60 ml/min/1.73 sqM) 04/02/17 07:59 Glucose 97 mg/dL (74-99) 04/02/17 07:59 Plasma Lactic Acid Zachery 1.6 mmol/L (0.7-2.0) 03/29/17 07:40 Calcium 9.7 mg/dL (8.4-10.2) 04/02/17 07:59 Total Bilirubin 1.6 mg/dL (0.2-1.3) H 03/29/17 07:40 AST 19 U/L (17-59) 03/29/17 07:40 ALT 33 U/L (21-72) 03/29/17 07:40 Alkaline Phosphatase 61 U/L (38-126) 03/29/17 07:40 Total Protein 6.6 g/dL (6.3-8.2) 03/29/17 07:40 Albumin 4.2 g/dL (3.5-5.0) 03/29/17 07:40 Prealbumin 16.0 mg/dL (18.0-42.0) L 04/01/17 06:41 Urine Color Light Yellow 03/29/17 16:30 Urine Appearance Clear (Clear) 03/29/17 16:30 Urine pH 6.5 (5.0-8.0) 03/29/17 16:30 Ur Specific Melvin 1.010 (1.001-1.035) 03/29/17 16:30 Urine Protein Negative (Negative) 03/29/17 16:30 Urine Glucose (UA) Negative (Negative) 03/29/17 16:30 Urine Ketones Negative (Negative) 03/29/17 16:30 Urine Blood Negative (Negative) 03/29/17 16:30 Urine Nitrite Negative (Negative) 03/29/17 16:30 Urine Bilirubin Negative (Negative) 03/29/17 16:30 Urine Urobilinogen <2.0 mg/dL (<2.0) 03/29/17 16:30 Ur Leukocyte Esterase Negative (Negative) 03/29/17 16:30 Vancomycin Trough 11.0 ug/mL 04/02/17 07:59 Microbiology 03/31/17 13:52 Hand - Right Gram Stain - Final 03/31/17 13:52 Hand - Right Wound Culture - Final Methicillin resist S. 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 Increasing difficulty with utilization of his hand unable to make a fist. Subsequent was admitted and has been seen by orthopedics. Given his lack of improvement with antimicrobial therapy he's been taking of the operative room today for incision and drainage of a palmar abscess. Full details of the surgical intervention arm process at this time. The patient is comfortable after surgery. He is able to eat his lunch with no difficulties. He is denying further high-grade fevers, chills or rigors. However the hand was absently miserable when he came to hospital. Systemic concerns will be to deep palmar space infection. Surgical cultures are in progress. This will further help clarify the antimicrobial therapy at discharge. An aggressive course of antibiotic therapy is indicated even the potential for loss of hand function. Currently receiving vancomycin therapy, ceftriaxone will be added for coverage is some gram-negative organisms also at this time until cultures are available. Pain control is adequate. Prealbumin was low and will need improved protein supplementation to help his healing. Local wound care with absorptive silver can be utilized. Will initiate workup for outpatient intravenous antibiotic therapy. Given the depth of the infection and the involvement of his dominant hand we'll treat as tenosynovitis with a 21 day course of antibiotic therapy. As noted MRSA has now been isolated. Antimicrobial therapy is altered to daptomycin. Prescription is sent to the outpatient pharmacy for coverage. It appears to be going to the office for outpatient infusion. Discharge home today , local wound care with Silvadene dressing. Status: Acute (2) Elevated bilirubin Status: Acute (3) Fever Status: Acute
--- NOTE | 2017-05-18 22:06 | OP ---
OPERATIVE REPORT DATE OF SURGERY: 03/31/2017 PREOPERATIVE DIAGNOSES: Infected palm of the right hand possible foreign body. FINAL DIAGNOSES: 1. Abscess mid palm right-hand. 2. Flexor tenosynovitis. PROCEDURE: 1. Incision and drainage abscess mid palm right hand. 2. Flexor tenosynovectomy of index and middle fingers. GROSS PATHOLOGY/INDICATION: This 56-year-old man developed an abscess in his mid palm area with possibility of foreign body. It had been treated with IV antibiotics for a day or 2 and was not responding and therefore deeper exploration was indicated. There was an abscess formation in the distal palm at the level distal palmar skin creases. There was some hypertrophic synovium about the index and middle fingers. He did not appear to produce a flexor tendon infection into the fingers per se. The infection did not appear to spread deeper into the carpal tunnel or the thenar space. PROCEDURE: This 56-year-old man was transferred from his hospital room to the operating room, where he was given IV sedation and local anesthetic was injected with a combination of Xylocaine and Marcaine both without epinephrine. His hand was prepped and draped in usual manner. It was elevated and cuff was inflated to 250 mmHg for exploration purposes. The procedure was done under 4.5 loupe magnification. Incision was made in the distal palmar skin crease and azam pus was immediately encountered. The abscess was evacuated. The infection did not appear to go much deeper than the fascia. The flexor tendons to the index and middle finger were visualized. There was some hypertrophic synovium that was excised. Again there did not appear to be infection into the flexor tendon sheath systems of the index and middle fingers or any deeper space infection. The space was thoroughly irrigated with antibiotic solution with a Pulsavac. Tourniquet was released. Hemostasis was satisfactory. The wound was packed open. Soft bulky dressing was applied. He was taken to recovery room in satisfactory condition. MMODL / IJN: [id number] /
== END 2017-04-02 17:24 | disposition home health service (06) | DRG 872 ==
LOC: EC 06:36 → 3SUR 10:01
PROVIDERS: ADMIT Hospitalist; ATTEND Hospitalist
PROC: 0J9J0ZX Drainage of Right Hand Subcutaneous Tissue and Fascia, Open Approach, Diagnostic (ICD-10-PCS; principal; 2017-04-02 11:20)
PROC: 02HV33Z Insertion of Infusion Device into Superior Vena Cava, Percutaneous Approach (ICD-10-PCS; 2017-04-02 11:20)
PROC: B548ZZA Ultrasonography of Superior Vena Cava, Guidance (ICD-10-PCS; 2017-04-02 11:20)
DX: A41.02 Sepsis due to Methicillin resistant Staphylococcus aureus (principal); R17 Unspecified jaundice; L03.113 Cellulitis of right upper limb; L02.511 Cutaneous abscess of right hand; E66.01 Morbid (severe) obesity due to excess calories; M10.9 Gout, unspecified; L40.0 Psoriasis vulgaris; F10.10 Alcohol abuse, uncomplicated; Z91.040 Latex allergy status; Z79.1 Long term (current) use of non-steroidal anti-inflammatories (NSAID); Z79.899 Other long term (current) drug therapy; Z82.0 Family history of epilepsy and other diseases of the nervous system; Z82.61 Family history of arthritis; Z87.442 Personal history of urinary calculi; Z71.41 Alcohol abuse counseling and surveillance of alcoholic; Z85.828 Personal history of other malignant neoplasm of skin; Z86.19 Personal history of other infectious and parasitic diseases; Z87.891 Personal history of nicotine dependence
CPT/HCPCS: 36415; 36569; 76937; 77001; 80048; 80053; 80202; 81003; 82565; 83605; 84134; 85025; 85027; 85610; 85730; 87070; 87075; 87077; 87086; 87186; 87205; 93005; 96365; 96366; 99284

== ENCOUNTER → 2017-12-16 | Outpatient (CLI) | payer MEDICAID ==
--- NOTE | 2017-12-16 11:28 | XR ---
EXAMINATION TYPE: XR chest 2V DATE OF EXAM: 12/16/2017 COMPARISON: Chest x-ray August 27, 2013 HISTORY: Soreness of breath for 2 -3 weeks. History of palpitations. TECHNIQUE: Frontal and lateral views of the chest are obtained. FINDINGS: There is no focal air space opacity, pleural effusion, or pneumothorax seen. The cardiac silhouette size is within normal limits. Underlying dextroconvex scoliosis centered in the lower thor acic spine is present. IMPRESSION: No suspicious acute pulmonary process. No significant change from prior.
== END | disposition home or self-care (01) ==
LOC: RADXRMAIN 11:08
PROVIDERS: ATTEND Family Medicine
DX: R06.00 Dyspnea, unspecified (principal); R00.2 Palpitations
CPT/HCPCS: 71046

== ENCOUNTER → 2017-12-22 | Outpatient (CLI) | payer MEDICAID | END | disposition home or self-care (01) | LOC: RADECHMAIN 11:45 | PROVIDERS: ATTEND Family Medicine | DX: I49.3 Ventricular premature depolarization (principal) | CPT/HCPCS: 93225; 93226 ==

== ENCOUNTER → 2018-03-04 | Outpatient (CLI) | payer MEDICAID ==
[2018-03-04 14:49] LABS: C Reactive Protein 7.5 mg/L (<10.0); Potassium 4.3 mmol/L (3.5-5.1); Uric Acid 5.2 mg/dL (3.5-8.5)
[2018-03-04 20:53] LABS: Cyclic Citrullinated Pep IgG NEGATIVE (NEGATIVE)
[2018-03-04 22:21] LABS: Hemoglobin A1C 6.4 % (4.0-6.0)
[2018-03-04 23:04] LABS: Protein, Total 6.6 g/dL (6.2-8.2); Rheumatoid Factor 7 IU/mL (0-15)
[2018-03-04 23:30] LABS: Hepatitis A Antibody IgM Non-Reactive (Non-Reactive); Hepatitis B Core IgM Non-Reactive (Non-Reactive)
[2018-03-05 10:21] LABS: HLA B27 NEGATIVE
[2018-03-05 16:22] LABS: Albumin 4.16 g/dL (3.80-4.90); Gamma Globulin 0.76 g/dL (0.70-1.50)
== END | disposition home or self-care (01) ==
LOC: LABWHC1 13:08
PROVIDERS: ATTEND Internal Medicine Rheumatology
DX: M10.9 Gout, unspecified (principal); M54.5 Low back pain; L40.9 Psoriasis, unspecified; M25.551 Pain in right hip
CPT/HCPCS: 36415; 80051; 80074; 82550; 83036; 83735; 84165; 84550; 85652; 86140; 86200; 86431; 86812

== ENCOUNTER → 2019-04-06 | Outpatient (CLI) | payer BC ==
[2019-04-06 17:47] LABS: Hemoglobin A1C 8.2 % (4.0-6.0)
== END | disposition home or self-care (01) ==
LOC: LABWHC1 10:06
PROVIDERS: ATTEND Urology
DX: N32.81 Overactive bladder (principal)
CPT/HCPCS: 36415; 83036

== ENCOUNTER → 2021-04-03 | Outpatient (CLI) | payer MEDICARE ==
--- NOTE | 2021-04-03 12:10 | US ---
EXAMINATION TYPE: US abdomen complete DATE OF EXAM: 04/03/2021 COMPARISON: NONE CLINICAL HISTORY: D69.6 Thrombocytopenia, K76.0 Fatty Liver. EXAM MEASUREMENTS: Liver Length: 22.6 cm Gallbladder Wall: 0.2 cm CBD: Not seen Spleen: 13.4 cm Right Kidney: 11.2x6.4x6.2 cm Left Kidney: 11.3x6.5x5.5 cm Very limited exam due to body habitus and severe fatty liver Pancreas: Obscured by bowel gas Liver: Increased attenuation, decreased visualization of vessels suggestive of fatty infiltrate Gallbladder: wnl Evidence for sonographic Cruz's sign: No CBD: Obscured by overlying bowel gas Spleen: Increased attenuation Right Kidney: wnl Left Kidney: wnl Upper IVC: Obscured by overlying bowel gas Abd Aorta: Obscured by overlying bowel gas Suboptimal evaluation of pancreas on initial images. Visualized liver is markedly heterogeneously hyp erechoic. Evaluation for focal masses suboptimal due to the heterogeneity. No surrounding ascites. Ga llbladder seen without shadowing mobile gallstones. No right-sided hydronephrosis. No left-sided hydr onephrosis. Spleen is mildly enlarged in size. Common bile duct is not distinctly visualized. No obvi ous intrahepatic biliary dilatation noted. IMPRESSION: Suboptimal study. Mild splenomegaly. Hepatomegaly with heterogeneous hyperechoic appearan ce of the liver could be on basis of diffuse fatty infiltration and/or underlying hepatocellular dise ase. Imaging guided random biopsy for tissue analysis can be performed if desired.
== END | disposition home or self-care (01) ==
LOC: RADUSWWP 09:26
PROVIDERS: ATTEND Internal Medicine Hematology & Oncology
DX: D69.6 Thrombocytopenia, unspecified (principal); R16.2 Hepatomegaly with splenomegaly, not elsewhere classified
CPT/HCPCS: 76700

== ENCOUNTER → 2022-02-11 | Outpatient (CLI) | payer MEDICARE ==
[2022-02-11 19:24] LABS: Basophils # (A) 0.04 X 10*3/uL (0.00-0.10); Basophils % (A) 0.7 %; Eosinophils # (A) 0.18 X 10*3/uL (0.04-0.35); Eosinophils % (A) 3.3 %; HCT 48.5 % (39.6-50.0); HGB 15.5 g/dL (13.0-17.0); Immature Grans, Automated 0.6 %; Lymphocytes # (A) 1.55 X 10*3/uL (0.90-5.00); Lymphocytes % (A) 28.6 %; MCH 28.6 pg (27.0-32.0); MCV 89.5 fL (80.0-97.0); Mean Platelet Volume 11.9 fL (9.5-12.2); Monocytes # (A) 0.41 X 10*3/uL (0.20-1.00); Monocytes % (A) 7.6 %; NRBC Per 100 WBC 0 /100 WBCS (0.0-0.0); Neutrophils # (A) 3.21 X 10*3/uL (1.80-7.70); Neutrophils % (A) 59.2 %; Platelet Count 125 X 10*3/uL (140-440); RBC 5.42 X 10*6/uL (4.40-5.60); RDW 12.8 % (11.5-14.5); WBC 5.42 X 10*3/uL (4.50-10.00)
[2022-02-11 19:46] LABS: Hepatitis B Surface Antigen Nonreactive (Nonreactive); Hepatitis C IgG Antibody Nonreactive (Nonreactive)
[2022-02-11 19:59] LABS: ALT 26 U/L (10-49); AST 16 U/L (14-35); Albumin 4.3 g/dL (3.8-4.9); Alkaline Phosphatase 75 U/L (41-126); BUN/Creat Ratio 18.48 Ratio (12.00-20.00); Bilirubin, Conjugated <0.20 mg/dL (0.20-0.40); Blood Urea Nitrogen 15.8 mg/dL (9.0-27.0); Calcium 9.7 mg/dL (8.7-10.3); Carbon Dioxide 24.1 mmol/L (20.0-27.5); Chloride 105 mmol/L (96-109); Globulin 2.1 g/dL (1.6-3.3); Glucose 186 mg/dL (70-110); Non-African American GFR(CKD) 93.2 (60.0-200.0); Potassium 4.2 mmol/L (3.5-5.5); Sodium 141 mmol/L (135-145); Total Protein 6.4 g/dL (6.2-8.2)
[2022-02-11 20:16] LABS: Hepatitis B Surface AB- Quant 3.5 mIU/mL; Hepatitis B Surface Antibody Nonreactive (Nonreactive)
== END | disposition home or self-care (01) ==
LOC: LABWHC1 14:01
PROVIDERS: ATTEND Dermatology
DX: L40.0 Psoriasis vulgaris (principal); L21.8 Other seborrheic dermatitis
CPT/HCPCS: 36415; 80048; 80076; 85025; 86480; 86704; 86706; 86803; 87340

== ENCOUNTER → 2022-04-01 | Outpatient (CLI) | payer MEDICARE ==
--- NOTE | 2022-04-01 12:38 | XR ---
EXAMINATION TYPE: XR KUB DATE OF EXAM: 04/01/2022 11:56 AM INDICATION: Patient age:Male; 61 years old; Reason for study: N20.1 calculus; COMPARISON: None. TECHNIQUE: One radiographic view of the abdomen was obtained. FINDINGS: The bowel gas pattern is nonspecific without dilated loops of small or large bowel. There i s no evidence for organomegaly or pneumoperitoneum. The osseous structures are intact. No abnormal calcifications are present. Fecal material and gas are demonstrated throughout the colon and rectum. Multilevel disc degeneration changes in the lower lumbar spine. IMPRESSION: 1. No evidence for renal calculus 2. Nonspecific bowel gas pattern without radiographic evidence for acute process. 3. Mild multilevel disc degeneration.
== END | disposition home or self-care (01) ==
LOC: RADXRMAIN 11:40
PROVIDERS: ATTEND Urology
DX: M51.26 Other intervertebral disc displacement, lumbar region (principal)
CPT/HCPCS: 74018

== ENCOUNTER → 2022-04-16 | Outpatient (CLI) | payer MEDICARE ==
--- NOTE | 2022-04-16 12:56 | CT ---
EXAMINATION TYPE: CT abdomen pelvis wo con DATE OF EXAM: 04/16/2022 COMPARISON: None HISTORY: Urgent urination CT DLP: 2328.00 mGycm Automated exposure control for dose reduction was used. TECHNIQUE: Helical acquisition of images from the lung bases through the pelvis. FINDINGS: Lack of intravenous contrast could compromise sensitivity. LUNG BASES: No significant abnormality is appreciated. AORTA: No significant abnormality is appreciated. LIVER/GB: The liver shows low attenuation likely due to hepatic steatosis. Gallbladder is contracted. Liver is enlarged. PANCREAS: No significant abnormality is seen. SPLEEN: No significant abnormality is seen. ADRENALS: No significant abnormality is seen. KIDNEYS: No significant abnormality is seen. REPRODUCTIVE ORGANS: Prostate is enlarged and shows scattered calcifications. URINARY BLADDER: No significant abnormality is seen. BOWEL: Postop change noted to the colon. Thickening of the jejunal wall is present. FREE AIR: No Free Air is visible. ASCITES: None visible. PELVIC ADENOPATHY: None visualized. RETROPERITONEAL ADENOPATHY: No Retroperitoneal Adenopathy visible. OSSEOUS STRUCTURES: Generative disc changes in the lumbar spine with facet arthropathy. IMPRESSION: CORRELATE FOR HEPATIC STEATOSIS, CARDIOMEGALY. POSSIBLE ENTERITIS.
== END | disposition home or self-care (01) ==
LOC: RADCTMAIN 11:54
PROVIDERS: ATTEND Urology
DX: K76.0 Fatty (change of) liver, not elsewhere classified (principal); I51.7 Cardiomegaly
CPT/HCPCS: 74176

== ENCOUNTER → 2023-02-03 | Outpatient (CLI) | payer MEDICARE | END | disposition home or self-care (01) | LOC: LABWHC1 13:07 | PROVIDERS: ATTEND Dermatology | DX: L40.0 Psoriasis vulgaris (principal); L40.59 Other psoriatic arthropathy | CPT/HCPCS: 36415; 86480 ==

== ENCOUNTER → 2023-04-16 | Outpatient (CLI) | payer MEDICARE ==
[2023-04-16 20:40] LABS: Basophils # (A) 0.06 X 10*3/uL (0.00-0.10); Basophils % (A) 0.9 %; Eosinophils % (A) 3.1 %; HCT 50.7 % (39.6-50.0); HGB 16.4 d/dL (13.0-17.0); Lymphocytes # (A) 1.73 X 10*3/uL (0.90-5.00); Lymphocytes % (A) 26.4 %; MCH 29.7 pg (27.0-32.0); MCHC 32.3 d/dL (32.0-37.0); MCV 91.7 FL (80.0-97.0); Mean Platelet Volume 12.3 FL (9.5-12.2); Monocytes # (A) 0.49 X 10*3/uL (0.20-1.00); Monocytes % (A) 7.5 %; NRBC Per 100 WBC 0 X 10*3/uL (0.00-0.01); Platelet Count 137 X 10*3/uL (140-440); RBC 5.53 X 10*6/uL (4.40-5.60); RDW 14.1 % (11.5-14.5); WBC 6.55 X 10*3/uL (4.50-10.00)
[2023-04-16 20:57] LABS: Erythrocyte Sedimentation Rate 18 mm/Hr (0-20)
== END | disposition home or self-care (01) ==
LOC: LABWHC1 14:47
PROVIDERS: ATTEND Internal Medicine Rheumatology
DX: Z12.5 Encounter for screening for malignant neoplasm of prostate (principal); L40.50 Arthropathic psoriasis, unspecified
CPT/HCPCS: 36415; 85025; 85652; 86140